=== PATIENT | male | born 1970 | race Asian ===

== ENCOUNTER 2016-10-11 19:15 | Observation (INO) | payer OTHER ==
--- NOTE | 2016-10-11 19:40 | PDOC ---
[id number] Illness Initial Comments: 10/11/16 21:49 The patient is a 46 year old male, with no significant past medical history, who presents to the emergency department with his , after a possible CVA/ TIA. As per the patient's she reports that her took a long shower this evening and when he got out he was very drowsy and she noticed that his left eye was droopy. She then asked him to smile and reported that he had left sided facial weakness. The left sided facial weakness had resolved prior to presentation to the emergency department. The patient reports that he did not fall in the shower. He denies any shortness of breath, dizziness, and balance problems. He denies fever, chills, nausea, vomit, diarrhea and constipation. Allergies: None Social history: No alcohol or drug use <Ngoc Uriostegui - Last Filed: 10/11/16 21:52> <Eneida Ferro - Last Filed: 10/13/16 22:53> - General Chief Complaint: CVA/TIA Stated Complaint: WEAKNESS AND DISORIENTATION PER Time Seen by Provider: 10/11/16 19:37 Past History <Ngoc Uriostegui - Last Filed: 10/11/16 21:52> - Past Medical History Other medical history: DENIES - Psycho/Social/Smoking Cessation Hx Anxiety: No Suicidal Ideation: No Smoking History: Never smoked Have you smoked in the past 12 months: No Information on smoking cessation initiated: No Hx Alcohol Use: No Drug/Substance Use Hx: No Substance Use Type: None <Eneida Ferro - Last Filed: 10/13/16 22:53> - Past Medical History Allergies/Adverse Reactions: Allergies Allergy/AdvReac Type Severity Reaction Status Date / Time No Known Allergies Allergy Verified 10/11/16 20:28 Home Medications: Ambulatory Orders Aspirin Coated [Ecotrin -] 81 mg PO DAILY #30 mg 10/13/16 Atorvastatin Ca [Lipitor] 80 mg PO HS #30 tablet 10/13/16 Review of Systems - Review of Systems Able to Perform ROS?: Yes Comments:: 10/11/16 21:49 CONSTITUTIONAL: +drowsey Absent: fever, chills, diaphoresis, generalized weakness, malaise, loss of appetite HEENT: Absent: rhinorrhea, nasal congestion, throat pain, throat swelling, difficulty swallowing, mouth swelling, ear pain, eye pain, visual Changes CARDIOVASCULAR: Absent: chest pain, syncope, palpitations, irregular heart rate, lightheadedness , peripheral edema RESPIRATORY: Absent: cough, shortness of breath, dyspnea with exertion, orthopnea, wheezing, stridor, hemoptysis GASTROINTESTINAL: Absent: abdominal pain, abdominal distension, nausea, vomiting, diarrhea, constipation, melena, hematochezia GENITOURINARY: Absent: dysuria, frequency, urgency, hesitancy, hematuria, flank pain, genital pain MUSCULOSKELETAL: Absent: myalgia, arthralgia, joint swelling SKIN: Absent: rash, itching, pallor HEMATOLOGIC/IMMUNOLOGIC: Absent: easy bleeding, easy bruising, lymphadenopathy, frequent infections ENDOCRINE: Absent: unexplained weight gain, unexplained weight loss, heat intolerance, cold intolerance NEUROLOGIC: Absent: headache, focal weakness or paresthesias, dizziness, unsteady gait, seizure, mental status changes, bladder or bowel incontinence PSYCHIATRIC: Absent: anxiety, depression, suicidal or homicidal ideation, hallucinations. <Ngoc Uriostegui - Last Filed: 10/11/16 21:52> *Physical Exam - Vital Signs Last Vital Signs Temp Pulse Resp BP Pulse Ox 98.1 F 73 14 130/90 100 10/11/16 19:22 10/11/16 20:30 10/11/16 20:30 10/11/16 20:30 10/11/16 20:30 - Physical Exam Comments: 10/11/16 21:49 GENERAL: The patient is awake, appearing drowsy but responsive to person and place with halting speech. In no acute distress. HEAD: Normal with no signs of trauma. EYES: Pupils equal, round and reactive to light, extraocular movements intact, sclera anicteric, conjunctiva clear with no pallor. ENT: +Dry mucous membranes. Ears normal, nares patent, oropharynx clear without exudates. NECK: Normal range of motion, supple without lymphadenopathy, JVD, or masses. LUNGS: Breath sounds equal, clear to auscultation bilaterally. No wheeze/ crackles. HEART: Regular rate and rhythm, normal S1 and S2 without murmur or rub. ABDOMEN: =Generalized mild abdominal tenderness Soft, nondistended. BS wnl. No guarding or rebound. No palpable masses. No hepatosplenomegaly. EXTREMITIES: Normal range of motion, no edema. No clubbing or cyanosis. No cords, erythema, or tenderness. NEUROLOGICAL: Cranial nerves II through XII grossly intact. Did not test gait. PSYCH: Normal mood, normal affect. SKIN: Warm, Dry, normal turgor, no rashes or lesions noted. <MoodyNgoc - Last Filed: 10/11/16 21:52> - Vital Signs Last Vital Signs Temp Pulse Resp BP Pulse Ox 98.1 F 87 16 132/89 100 10/11/16 19:22 10/11/16 19:22 10/11/16 19:22 10/11/16 19:22 10/11/16 19:22 <Eneida Ferro - Last Filed: 10/13/16 22:53> NIH Stroke Scale - Initial Evaluation Level of consciousness: Alert Ask patient the month and their age: Answers both correctly Ask patient to open & close eyes; make fist and let go: Obeys both correctly Best gaze (horizontal eye movement): Normal Visual field testing: No visual field loss Facial paresis (Show teeth/raise eyebrows/close eyes tight): Normal symmetrical movement Motor Function: Right Arm: Normal (extends arm 90 (or 45) degrees for 10 seconds without drift Motor Function: Left Leg: Normal (extends leg 30 degrees for 5 seconds without drift) Motor Function: Right Leg: Normal (extends leg 30 degrees for 5 seconds without drift) Limb Ataxia: Untestable (Joint fused or limb amputated), explain: Sensory(Use pinprick test arms,legs,trunk,face/side to side): Normal Best language (Describe picture, name items, read sentences): Mild to moderate aphasia Dysarthria (read several words): Intubated or other physical barrierr, explain: <Eneida Ferro - Last Filed: 10/13/16 22:53> Critical Care Time/MDM Note - Medical Decision Making Note: 10/11/16 21:12 CT Head Without Contrast Reported by: Dr. Sandra Saldaña Reviewed by: Dr. Eneida Ferro Impression: There is no evidence of an acute intracranial process, intracranial hemorrhage or mass effect. Ventricular size if concordant with the degree of atrophy. The visualized portions of the orbits, paranasal and mastoid sinuses are unremarkable. If there is a clinical suspicion of an acute intracranial process and if there is no clinical contraindication, MRI brain may be helpful. <Ngoc Uriostegui - Last Filed: 10/11/16 21:52> - Medical Decision Making Note: Documentation has been prepared under my direction and personally reviewed by me in its entirety. I attest that this documented accurately reflects all work, treatment, procedures and medical decision making performed by me. As noted above, this 46-year-old man, otherwise healthy was ambulatory to the emergency room accompanied by his with a history of altered mental status. 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 Patient took a shower as noted above and then , as described by his , appeared pale and with decreased responsiveness when he exited the shower. Patient stated that he "felt sick". describes left-sided facial droop at this time which lasted until he presented to the emergency room. There was no other weakness noted. Although patient has had decreased responsiveness since this time, there is been no dysarthria noted. No recent head trauma reported by patient or his . No history of smoking, alcohol or drug abuse. No other past medical history. states that the patient has had generalized abdominal pain for a few months without vomiting or change in bowel movements. He has had no fever or chills. He also has complained of bilateral lower extremity pain for the last several days without known overuse or trauma. Exam as noted above Workup including laboratory evaluation, noncontrast head CT, abdominal CT/ pelvic CT, EKG reveals no evidence of acute process. Urine tox screen is negative case was discussed with of [facility]. Patient will be admitted to their service with diagnosis of TIA. Patient was transferred up to admission bed, stable and alert without new problems or complaints <Eneida Ferro - Last Filed: 10/13/16 22:53> Discharge Disposition <Ngoc Uriostegui - Last Filed: 10/11/16 21:52> - Discharge Dispostion Admit: Yes <Eneida Ferro - Last Filed: 10/13/16 22:53> - Diagnosis TIA (transient ischemic attack) Qualifiers: Transient cerebral ischemia type: unspecified Qualified Code(s): G45.9 - Transient cerebral ischemic attack, unspecified - Discharge Dispostion Disposition: HOME Condition at time of disposition: Improved - Prescriptions - Referrals
[2016-10-11 20:19] LABS: BASOPHIL 0.6 % (0-2.0); EOSINOPHIL 2.6 % (0-4.5); MCH 29.1 pg (25.7-33.7); MCHC 33.8 g/dl (32.0-35.9); MEAN PLT VOLUME 8.4 fl (7.5-11.1); PLATELET COUNT 178 K/MM3 (134-434); RDW 12.5 % (11.9-15.9); WHITE BLOOD COUNT 6.5 K/mm3 (4.0-10.8)
[2016-10-11 20:37] LABS: INR 1.14 (0.82-1.09); PROTHROMBIN TIME (PATIENT) 12.7 SEC (10.2-13.0)
[2016-10-11 20:39] LABS: CPK(DFH) 147 IU/L (38-174)
[2016-10-11 20:40] LABS: ALBUMIN 4.6 g/dl (3.5-5.0); ALK PHOS 52 U/L (32-92); ANION GAP 7 (8-16); BILIRUBIN,TOTAL 0.8 mg/dl (0.2-1.0); CALCIUM 8.9 mg/dl (8.4-10.2); CO2 24 mmol/L (22-28); COCKROFT - GAULT 96.94; CREATININE 1.1 mg/dl (0.6-1.3); GLUCOSE,RANDOM 88 mg/dl (74-106); SGOT/AST 19 U/L (10-42); SGPT/ALT 19 U/L (10-40); TOT PROT 7.1 g/dl (6.4-8.3)
[2016-10-11 20:51] LABS: TROPONIN I (DFP) < 0.03 ng/ml (0.03-0.50)
[2016-10-11] MEDS ORDERED: SODIUM CHLORIDE 1,000 ML IV STA (21:10)
[2016-10-11 21:57] LABS: URINE APPEARANCE Clear; URINE BILIRUBIN Negative (NEGATIVE); URINE BLOOD Negative (NEGATIVE); URINE GLUCOSE (UA) Negative (NEGATIVE); URINE KETONE Negative (NEGATIVE); URINE LEUK ESTERASE Negative (NEGATIVE); URINE NITRITE Negative (NEGATIVE); URINE PROTEIN Negative (NEGATIVE); URINE UROBILINOGEN 0.2 E.U/dl (0.2-1.0)
[2016-10-11 21:58] LABS: URINE COLOR YELLOW
[2016-10-11 22:42] LABS: URINE MARIJUANA THC NEGATIVE ng/ml (CUTOFF=50)
[2016-10-12 01:38] VITALS: BMI 28.3
--- NOTE | 2016-10-12 09:32 | HP ---
CHIEF COMPLAINT: I felt tired. I don't remember anything after that. PCP: None HISTORY OF PRESENT ILLNESS: 46 year-old male with no significant PMH was brought to ED by his for stroke-like symptoms. 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 He went to work as usual yesterday and when he returned home he went to take a shower. When he came out of the shower his noted the left side of his face was drooping. He appeared to be altered mentally. His speech was slow and he was confused. He complained of feeling very tired. He laid his head on her chest and said "I'm sick." The brought the patient to the ED. Over the past month the patient has been suffering from headaches upon waking. He describes the headaches as frontal and bilateral and he has been taking Tylenol for relief. The reports that she too has been waking up with headaches every morning as well as the couple's two daughters. The house they live in is under rennovation by the sensitizer and yesterday someone came in and installed a carbon monoxide detector because the furnace is old, installed in 1959. Recent Travel: none PAST MEDICAL HISTORY: None reported PAST SURGICAL HISTORY: None reported Social History: Smoking: No Alcohol: No Drugs: No Family History: father 75 of diabetes; mother 65 of CVA; brother 55 of CVA; 3 brothers, one with heart problem; 6 sisters a&w Allergies No Known Allergies Allergy (Verified 10/11/16 20:28) HOME MEDICATIONS: Home Medications Medication Instructions Recorded NK [No Known Home Medication] 10/11/16 REVIEW OF SYSTEMS CONSTITUTIONAL: Present: generalized weakness Absent: fever, chills, diaphoresis, malaise, loss of appetite, weight change HEENT: Absent: rhinorrhea, nasal congestion, throat pain, throat swelling, difficulty swallowing, mouth swelling, ear pain, eye pain, visual changes CARDIOVASCULAR: Absent: chest pain, syncope, palpitations, irregular heart rate, lightheadedness , peripheral edema RESPIRATORY: Absent: cough, shortness of breath, dyspnea with exertion, orthopnea, wheezing, stridor, hemoptysis GASTROINTESTINAL: Absent: abdominal pain, abdominal distension, nausea, vomiting, diarrhea, constipation, melena, hematochezia GENITOURINARY: Absent: dysuria, frequency, urgency, hesitancy, hematuria, flank pain, genital pain MUSCULOSKELETAL: Present: bilateral leg pain Absent: myalgia, arthralgia, joint swelling, back pain, neck pain SKIN: Absent: rash, itching, pallor HEMATOLOGIC/IMMUNOLOGIC: Absent: easy bleeding, easy bruising, lymphadenopathy, frequent infections ENDOCRINE: Absent: unexplained weight gain, unexplained weight loss, heat intolerance, cold intolerance NEUROLOGIC: Present: headache, mental status changes, left sided facial droop Absent: paresthesias, dizziness, unsteady gait, seizure, bladder or bowel incontinence PSYCHIATRIC: Absent: anxiety, depression, suicidal or homicidal ideation, hallucinations. PHYSICAL EXAMINATION Vital Signs - 24 hr 10/12/16 10/12/16 02:00 06:00 Temperature 97.6 F Pulse Rate 72 70 Respiratory 14 14 Rate Blood Pressure 109/62 124/75 GENERAL/NEURO: Awake. Alert. Oriented x to person, place, time, President Trump. Speech is delayed. Cannot subtract 7 from 100. Motor/sensory 5/5 in all extremities. Steady gait but unable to follow instructions for heel/toe walking. Has no recollection of events after coming out of shower. HEAD: Normal with no signs of trauma. EYES: Pupils equal, round and reactive to light, extraocular movements intact, sclera anicteric, conjunctiva clear. No ptosis. EARS, NOSE, THROAT: Ears normal, nares patent, oropharynx clear without exudates. Moist mucous membranes. NECK: Normal range of motion, supple without lymphadenopathy, JVD, or masses. LUNGS: Breath sounds equal, clear to auscultation bilaterally. No wheezes, and no crackles. No accessory muscle use. HEART: Regular rate and rhythm, normal S1 and S2 without murmur, rub or gallop. ABDOMEN: Soft, nontender, not distended, normoactive bowel sounds, no guarding, no rebound, no masses. No hepatomegaly or splenomegaly. MUSCULOSKELETAL: Normal range of motion at all joints. No bony deformities or tenderness. No CVA tenderness. UPPER EXTREMITIES: 2+ pulses, warm, well-perfused. No cyanosis. No clubbing. No peripheral edema. LOWER EXTREMITIES: 2+ pulses, warm, well-perfused. No calf tenderness. No peripheral edema. Laboratory Results - last 24 hr 10/11/16 10/11/16 10/11/16 19:30 19:30 19:30 WBC 6.5 RBC 5.23 Hgb 15.2 Hct 44.9 MCV 86.0 MCHC 33.8 RDW 12.5 Plt Count 178 MPV 8.4 Neutrophils % 55.0 Lymphocytes % 33.5 Monocytes % 8.3 Eosinophils % 2.6 Basophils % 0.6 INR PTT (Actin FS) Sodium 138 Potassium 3.8 Chloride 107 Carbon Dioxide 24 Anion Gap 7 L BUN 19 H Creatinine 1.1 Creat Clearance w eGFR > 60 Random Glucose 88 Lactic Acid Calcium 8.9 Total Bilirubin 0.8 AST 19 ALT 19 Alkaline Phosphatase 52 Creatine Kinase 147 Troponin I < 0.03 L Total Protein 7.1 Albumin 4.6 Triglycerides Cholesterol Total LDL Cholesterol HDL Cholesterol Urine Color Urine Appearance Urine pH Ur Specific Knox Urine Protein Urine Glucose (UA) Urine Ketones Urine Blood Urine Nitrite Urine Bilirubin Urine Urobilinogen Ur Leukocyte Esterase Opiates Screen Methadone Screen Barbiturate Screen Phencyclidine Screen Ur Amphetamines Screen MDMA (Ecstasy) Screen Benzodiazepines Screen Cocaine Screen U Marijuana (THC) Screen 10/11/16 10/11/16 10/11/16 19:30 20:15 21:40 WBC RBC Hgb Hct MCV MCHC RDW Plt Count MPV Neutrophils % Lymphocytes % Monocytes % Eosinophils % Basophils % INR 1.14 PTT (Actin FS) Sodium Potassium Chloride Carbon Dioxide Anion Gap BUN Creatinine Creat Clearance w eGFR Random Glucose Lactic Acid 0.802 Calcium Total Bilirubin AST ALT Alkaline Phosphatase Creatine Kinase Troponin I Total Protein Albumin Triglycerides Cholesterol Total LDL Cholesterol HDL Cholesterol Urine Color Yellow Urine Appearance Clear Urine pH 6.0 Ur Specific Knox 1.010 Urine Protein Negative Urine Glucose (UA) Negative Urine Ketones Negative Urine Blood Negative Urine Nitrite Negative Urine Bilirubin Negative Urine Urobilinogen 0.2 e.u/dl Ur Leukocyte Esterase Negative Opiates Screen Methadone Screen Barbiturate Screen Phencyclidine Screen Ur Amphetamines Screen MDMA (Ecstasy) Screen Benzodiazepines Screen Cocaine Screen U Marijuana (THC) Screen 10/11/16 10/12/16 10/12/16 21:40 06:15 06:30 WBC 4.9 RBC 4.99 Hgb 14.6 Hct 43.0 MCV 86.1 MCHC 33.9 RDW 12.6 Plt Count 142 D MPV 9.1 Neutrophils % 54.6 Lymphocytes % 31.3 Monocytes % 9.6 Eosinophils % 3.3 Basophils % 1.2 INR PTT (Actin FS) Sodium Potassium Chloride Carbon Dioxide Anion Gap BUN Creatinine Creat Clearance w eGFR Random Glucose Lactic Acid Calcium Total Bilirubin AST ALT Alkaline Phosphatase Creatine Kinase Troponin I Total Protein Albumin Triglycerides 138 Cholesterol 163 Total LDL Cholesterol 105 HDL Cholesterol 30 Urine Color Urine Appearance Urine pH Ur Specific [place] Urine Protein Urine Glucose (UA) Urine Ketones Urine Blood Urine Nitrite Urine Bilirubin Urine Urobilinogen Ur Leukocyte Esterase Opiates Screen Negative Methadone Screen Negative Barbiturate Screen Negative Phencyclidine Screen Negative Ur Amphetamines Screen Negative MDMA (Ecstasy) Screen Negative Benzodiazepines Screen Negative Cocaine Screen Negative U Marijuana (THC) Screen Negative 10/12/16 10/12/16 06:30 06:30 WBC RBC Hgb Hct MCV MCHC RDW Plt Count MPV Neutrophils % Lymphocytes % Monocytes % Eosinophils % Basophils % INR 1.16 PTT (Actin FS) 31.2 Sodium 141 Potassium 3.9 Chloride 109 H Carbon Dioxide 26 Anion Gap 6 L BUN 15 D Creatinine 0.9 Creat Clearance w eGFR > 60 Random Glucose 92 Lactic Acid Calcium 8.7 Total Bilirubin 1.2 H D AST 16 ALT 16 Alkaline Phosphatase 43 Creatine Kinase Troponin I Total Protein 6.1 L Albumin 3.9 Triglycerides Cholesterol Total LDL Cholesterol HDL Cholesterol Urine Color Urine Appearance Urine pH Ur Specific Knox Urine Protein Urine Glucose (UA) Urine Ketones Urine Blood Urine Nitrite Urine Bilirubin Urine Urobilinogen Ur Leukocyte Esterase Opiates Screen Methadone Screen Barbiturate Screen Phencyclidine Screen Ur Amphetamines Screen MDMA (Ecstasy) Screen Benzodiazepines Screen Cocaine Screen U Marijuana (THC) Screen ASSESSMENT/PLAN: 46 year-old man with no significant PMH admitted with altered mental status. Altered mental status of uncertain etiology --possible carbon monoxide exposure v. TIA/CVA v. metabolic encephalopathy v. infectious --patient placed on NRB @ 15L --initial CT head negative, repeat pending; MRI pending --ABG with carboxyhemoglobin, lactic acid, esr, crp, Lymes, acetaminophen/ salicyclate levels, serum osm, urine osm, cultures ordered --will transfer patient to ICU and daughters are en route to [facility] ED for evaluation (ABGs cannot be done at [facility]). Tried to reach [facility] but no answer. Spoke to Sgt. Davila of [place] [facility] and notifed him of possible carbon monoxide condition at [address] [place] [address]. Visit type - Emergency Visit Emergency Visit: Yes ED Registration Date: 10/12/16 Care time: The patient presented to the Emergency Department on the above date and was hospitalized for further evaluation of their emergent condition. - New Patient This patient is new to me today: Yes Date on this admission: 10/16/16 - Critical Care Critical Care patient: No
[2016-10-12 09:38] LABS: CHOLESTEROL 163 mg/dl
[2016-10-12 09:41] LABS: ACTIVATED PTT 31.2 SECONDS (24.0-38.9)
[2016-10-12 09:42] LABS: ALBUMIN 3.9 g/dl (3.5-5.0); ALK PHOS 43 U/L (32-92); ANION GAP 6 (8-16); BILIRUBIN,TOTAL 1.2 mg/dl (0.2-1.0); CALCIUM 8.7 mg/dl (8.4-10.2); CO2 26 mmol/L (22-28); CREATININE 0.9 mg/dl (0.6-1.3); GLUCOSE,RANDOM 92 mg/dl (74-106); SGOT/AST 16 U/L (10-42); SGPT/ALT 16 U/L (10-40); TOT PROT 6.1 g/dl (6.4-8.3)
[2016-10-12 09:43] LABS: BASOPHIL 1.2 % (0-2.0); EOSINOPHIL 3.3 % (0-4.5); MCH 29.2 pg (25.7-33.7); MCHC 33.9 g/dl (32.0-35.9); MEAN CELL VOLUME 86.1 fl (80-96); MEAN PLT VOLUME 9.1 fl (7.5-11.1); NEUTROPHILS 54.6 % (42.8-82.8); PLATELET COUNT 142 K/MM3 (134-434); RDW 12.6 % (11.9-15.9); WHITE BLOOD COUNT 4.9 K/mm3 (4.0-10.8)
[2016-10-12 09:46] LABS: INR 1.16 (0.82-1.09); PROTHROMBIN TIME (PATIENT) 12.9 SEC (10.2-13.0)
[2016-10-12] MEDS ORDERED: ASPIRIN COATED 81 MG TABLET.EC PO SCH (10:00)
[2016-10-12 11:34] LABS: THYROID STIMULATING HORMONE 1.08 uIU/ml (0.358-3.74)
[2016-10-12 14:35] LABS: ARTERIAL BLOOD GAS BASE EXCESS 1.8 meq/l (-2-2); ARTERIAL BLOOD GAS HCO3 25.5 meq/L (22-26); ARTERIAL BLOOD GAS pH 7.44 (7.35-7.45)
[2016-10-12 14:36] LABS: ALLENS TEST POSITIVE; ART PUNCT SITE RIGHT RADIAL; LPM/O2% 100%; PT. ON O2? YES; TYPE OF O2 NONREBREATHER
[2016-10-12 15:37] LABS: OSMOLALITY,SERUM 290 mosm/kg (278-305)
--- NOTE | 2016-10-12 15:44 | CONSULT ---
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 Patient report ROBBINS upon wakening over the last month t/w APAP. In the ED he had CT head w/o acute infarct, MRI with minimal to mild periventricular intensity to the trigone and occipital horn of RV ? toxic encephalopathy vs encephalitis. On exam in ED speech was delayed and cognitive impairment (unable to do simple math). The rest of the family also has ? ROBBINS and given that their home/furnace is undergoing construction and questionable CO toxicity he was transferred to [facility] for ABG and carboxyhemoglobin evaluation. On arrival to [facility] patient awake, alert w/o neurological focal deficit. ABG done no A-a gradient, carboxyhemoglobin level: 1. Lactate 1.128. UTOX negative. APAP negative, ASA levels pending. ESR: 5. No osmolar gap. He denies fever, chills, nausea, vomit, diarrhea and constipation, no photophobia or nuchal rigidity. On exam he is AOx3 , HOLMAN w/o deficit. No CN defects. His mini mental he is able to subtract 100-7 but is delayed in his response. Of note the fire department was activated to the patient's home and no CO was detected. - History Source History Provided By: Patient, Family Member, Medical Record Limitations to Obtaining History: No Limitations - Past Medical History CORRECTIONAL THERAPY DIRECTOR: No: Alzheimer's, CVA, Dementia, Migraine, Multiple Sclerosis, Peripheral Neuropathy, Parkinson's, Seizure, Syncope, TIA, Vertigo, Other Cardio/Vascular: No: AFIB, Aneurysm, Aortic Insufficiency, Aortic Stenosis, CAD , CHF, Deep Vein Thrombosis, HTN, Hyperlipdemia, VA, Mitral Insufficiency, Mitral Stenosis, Murmur, Pulmonary Hypertension, Other Pulmonary: No: Asthma, Bronchitis, Cancer, COPD, O2 Dependent, Pneumonia, Previously Intubated, Pulmonary Embolus, Pulmonary Fibrosis, Sleep Apnea, Other - Alcohol/Substance Use Hx Alcohol Use: No - Smoking History Smoking history: Never smoked Have you smoked in the past 12 months: No Home Medications - Allergies Allergies/Adverse Reactions: Allergies Allergy/AdvReac Type Severity Reaction Status Date / Time No Known Allergies Allergy Verified 10/11/16 20:28 - Home Medications Home Medications: Ambulatory Orders NK [No Known Home Medication] 10/11/16 Family Disease History - Family Disease History Family Disease History: Other: Mother ( of CVA), Brother ( of CVA), Sister ( of CVA) Review of Systems - Review of Systems Neurological: reports: Change in Speech, Confusion, Weakness Physical Exam Vital Signs: Vital Signs Temperature 98.6 F 10/12/16 13:51 Pulse Rate 68 10/12/16 13:51 Respiratory Rate 12 10/12/16 13:51 Blood Pressure 124/81 10/12/16 13:51 O2 Sat by Pulse Oximetry (%) 100 10/12/16 14:20 Current Medications Aspirin (Ecotrin -) 81 mg PO DAILY ZACH Last Admin: 10/12/16 10:21 Dose: 81 mg Atorvastatin Calcium (Lipitor -) 40 mg PO HS ZACH Constitutional: Yes: No Distress, Calm Eyes: Yes: Conjunctiva Clear, EOM Intact HENT: Yes: Normocephalic Neck: Yes: Trachea Midline Cardiovascular: Yes: Regular Rate and Rhythm, S1, S2 Respiratory: Yes: CTA Bilaterally Gastrointestinal: Yes: Normal Bowel Sounds, Soft Edema: No Neurological: Yes: Alert, Oriented Psychiatric: Yes: Oriented Labs: CBC, BMP 10/12/16 06:30 10/12/16 06:30 Imaging - Results Cat Scan: Report Reviewed, Image Reviewed MRI: Report Reviewed, Image Reviewed Problem List - Problems (1) TIA (transient ischemic attack) Code(s): G45.9 - TRANSIENT CEREBRAL ISCHEMIC ATTACK, UNSPECIFIED Qualifiers: Transient cerebral ischemia type: unspecified Qualified Code(s): G45.9 - Transient cerebral ischemic attack, unspecified Assessment/Plan a/p 46 yo man with new onset left facial droop w/o acute infarct seen on imaging giving rise for CO poisoning now w/o evidence of carboxyhemoglobin which maybe do to washout (patient on NRB) vs most likely TIA vs less likely toxic overdose. He does not appear infected: no fever or leukocytosis -Neurology following -will place back on RA -cont w/u per neuro -cont tox w/u: -stable for floor transfer Boerem ACNP Pulm/CCM CCT: 35
--- NOTE | 2016-10-12 16:29 | PN ---
Physical Exam: SUBJECTIVE: Patient seen and examined in the ICU. He denies dizziness, headaches, lightheadedness, shortness of breath or chest pain. OBJECTIVE: carboxyhemoglobin 1.0 Vital Signs Period Temp Pulse Resp BP Sys/Ramos Pulse Ox Last 24 Hr 97.6 F-98.6 F 68-72 12-16 109-124/62-81 100 GENERAL: The patient is awake, alert, oriented. Slight delay in responding to questions noted, but answers appropriately. States he vaguely remembers events after coming of the shower but states that he had a headache and felt lightheaded during that time. HEAD: Normal with no signs of trauma. EYES: PERRL, extraocular movements intact, sclera anicteric, conjunctiva clear. No ptosis. ENT: Ears normal, nares patent, oropharynx clear without exudates, moist mucous membranes. NECK: Trachea midline, full range of motion, supple. LUNGS: Breath sounds equal, clear to auscultation bilaterally, no wheezes, no crackles, no accessory muscle use. HEART: Regular rate and rhythm ABDOMEN: Soft, nontender, nondistended, normoactive bowel sounds, no guarding, no rebound, no hepatosplenomegaly, no masses. EXTREMITIES: no edema. NEUROLOGICAL: Normal speech, gait not observed. PSYCH: Normal mood, normal affect. SKIN: Warm, dry, normal turgor, no rashes or lesions noted Laboratory Results - last 24 hr 10/12/16 10/12/16 10/12/16 06:15 06:30 06:30 WBC 4.9 RBC 4.99 Hgb 14.6 Hct 43.0 MCV 86.1 MCHC 33.9 RDW 12.6 Plt Count 142 D MPV 9.1 Neutrophils % 54.6 Lymphocytes % 31.3 Monocytes % 9.6 Eosinophils % 3.3 Basophils % 1.2 ESR INR 1.16 PTT (Actin FS) 31.2 Anticoagulation Therapy Puncture Site Patient Temperature ABG pH ABG pCO2 at Pt Temp ABG pO2 at Pt Temp ABG HCO3 ABG O2 Sat (Measured) ABG O2 Content ABG Base Excess Stan Test Carboxyhemoglobin O2 Delivery Device Oxygen Flow Rate Vent Mode Vent Rate Mechanical Rate PEEP Pressure Support Vent Sodium Potassium Chloride Carbon Dioxide Anion Gap BUN Creatinine Creat Clearance w eGFR Random Glucose Hemoglobin A1c % Serum Osmolality Lactic Acid Calcium Total Bilirubin AST ALT Alkaline Phosphatase Creatine Kinase Troponin I C-Reactive Protein Total Protein Albumin Triglycerides 138 Cholesterol 163 Total LDL Cholesterol 105 HDL Cholesterol 30 Vitamin B12 TSH Urine Osmolality Salicylates Acetaminophen 10/12/16 10/12/16 10/12/16 06:30 06:30 06:30 WBC RBC Hgb Hct MCV MCHC RDW Plt Count MPV Neutrophils % Lymphocytes % Monocytes % Eosinophils % Basophils % ESR 5 INR PTT (Actin FS) Anticoagulation Therapy Puncture Site Patient Temperature ABG pH ABG pCO2 at Pt Temp ABG pO2 at Pt Temp ABG HCO3 ABG O2 Sat (Measured) ABG O2 Content ABG Base Excess Stan Test Carboxyhemoglobin O2 Delivery Device Oxygen Flow Rate Vent Mode Vent Rate Mechanical Rate PEEP Pressure Support Vent Sodium 141 Potassium 3.9 Chloride 109 H Carbon Dioxide 26 Anion Gap 6 L BUN 15 D Creatinine 0.9 Creat Clearance w eGFR > 60 Random Glucose 92 Hemoglobin A1c % 5.7 Serum Osmolality Lactic Acid Calcium 8.7 Total Bilirubin 1.2 H D AST 16 ALT 16 Alkaline Phosphatase 43 Creatine Kinase Troponin I C-Reactive Protein Total Protein 6.1 L Albumin 3.9 Triglycerides Cholesterol Total LDL Cholesterol HDL Cholesterol Vitamin B12 TSH 1.08 Urine Osmolality Salicylates Acetaminophen 10/12/16 10/12/16 10/12/16 13:00 13:00 13:00 WBC RBC Hgb Hct MCV MCHC RDW Plt Count MPV Neutrophils % Lymphocytes % Monocytes % Eosinophils % Basophils % ESR INR PTT (Actin FS) Anticoagulation Therapy Puncture Site Patient Temperature ABG pH ABG pCO2 at Pt Temp ABG pO2 at Pt Temp ABG HCO3 ABG O2 Sat (Measured) ABG O2 Content ABG Base Excess Stan Test Carboxyhemoglobin O2 Delivery Device Oxygen Flow Rate Vent Mode Vent Rate Mechanical Rate PEEP Pressure Support Vent Sodium Potassium Chloride Carbon Dioxide Anion Gap BUN Creatinine Creat Clearance w eGFR Random Glucose Hemoglobin A1c % Serum Osmolality Lactic Acid Calcium Total Bilirubin AST ALT Alkaline Phosphatase Creatine Kinase Cancelled Troponin I C-Reactive Protein < 0.3 Total Protein Albumin Triglycerides Cholesterol Total LDL Cholesterol HDL Cholesterol Vitamin B12 235 TSH Urine Osmolality Salicylates Acetaminophen 10/12/16 10/12/16 10/12/16 13:00 13:00 13:00 WBC RBC Hgb Hct MCV MCHC RDW Plt Count MPV Neutrophils % Lymphocytes % Monocytes % Eosinophils % Basophils % ESR INR PTT (Actin FS) Anticoagulation Therapy Puncture Site Patient Temperature ABG pH ABG pCO2 at Pt Temp ABG pO2 at Pt Temp ABG HCO3 ABG O2 Sat (Measured) ABG O2 Content ABG Base Excess Stan Test Carboxyhemoglobin O2 Delivery Device Oxygen Flow Rate Vent Mode Vent Rate Mechanical Rate PEEP Pressure Support Vent Sodium Potassium Chloride Carbon Dioxide Anion Gap BUN Creatinine Creat Clearance w eGFR Random Glucose Hemoglobin A1c % Serum Osmolality Lactic Acid 1.128 Calcium Total Bilirubin AST ALT Alkaline Phosphatase Creatine Kinase Troponin I C-Reactive Protein Total Protein Albumin Triglycerides Cholesterol Total LDL Cholesterol HDL Cholesterol Vitamin B12 TSH Urine Osmolality Salicylates < 4.0 Acetaminophen < 2.000 L 10/12/16 10/12/16 10/12/16 13:00 13:15 13:15 WBC RBC Hgb Hct MCV MCHC RDW Plt Count MPV Neutrophils % Lymphocytes % Monocytes % Eosinophils % Basophils % ESR INR PTT (Actin FS) Anticoagulation Therapy Puncture Site Patient Temperature ABG pH ABG pCO2 at Pt Temp ABG pO2 at Pt Temp ABG HCO3 ABG O2 Sat (Measured) ABG O2 Content ABG Base Excess Stan Test Carboxyhemoglobin O2 Delivery Device Oxygen Flow Rate Vent Mode Vent Rate Mechanical Rate PEEP Pressure Support Vent Sodium Potassium Chloride Carbon Dioxide Anion Gap BUN Creatinine Creat Clearance w eGFR Random Glucose Hemoglobin A1c % Serum Osmolality 290 Lactic Acid Calcium Total Bilirubin AST ALT Alkaline Phosphatase Creatine Kinase 101 Troponin I 0.00 C-Reactive Protein Total Protein Albumin Triglycerides Cholesterol Total LDL Cholesterol HDL Cholesterol Vitamin B12 TSH Urine Osmolality 795 Salicylates Acetaminophen 10/12/16 10/12/16 10/12/16 14:20 14:20 14:20 WBC RBC Hgb Hct MCV MCHC RDW Plt Count MPV Neutrophils % Lymphocytes % Monocytes % Eosinophils % Basophils % ESR INR PTT (Actin FS) Anticoagulation Therapy Cancelled Puncture Site Cancelled Right radial Patient Temperature Cancelled ABG pH Cancelled 7.44 ABG pCO2 at Pt Temp Cancelled 38.3 ABG pO2 at Pt Temp Cancelled 541.0 H* ABG HCO3 Cancelled 25.5 ABG O2 Sat (Measured) Cancelled 100.0 H* ABG O2 Content Cancelled 22.0 ABG Base Excess Cancelled 1.8 Stan Test Cancelled Positive Carboxyhemoglobin 1.0 O2 Delivery Device Cancelled Nonrebreather Oxygen Flow Rate Cancelled 100% Vent Mode Cancelled Vent Rate Cancelled Mechanical Rate Cancelled PEEP Cancelled 0.0 Pressure Support Vent Cancelled Sodium Potassium Chloride Carbon Dioxide Anion Gap BUN Creatinine Creat Clearance w eGFR Random Glucose Hemoglobin A1c % Serum Osmolality Lactic Acid Calcium Total Bilirubin AST ALT Alkaline Phosphatase Creatine Kinase Troponin I C-Reactive Protein Total Protein Albumin Triglycerides Cholesterol Total LDL Cholesterol HDL Cholesterol Vitamin B12 TSH Urine Osmolality Salicylates Acetaminophen Active Medications Generic Name Dose Route Start Last Admin Trade Name Evi PRN Reason Stop Dose Admin Aspirin 81 mg 10/13/16 10:00 Ecotrin - PO DAILY ZACH Atorvastatin Calcium 40 mg 10/12/16 22:00 Lipitor - PO HS ZACH ASSESSMENT/PLAN: Patient is a 46 year old male with no significant past medical history who presents to the emergency department @ [place] with his after there was a concern over a possible CVA/TIA. As per ER notes the patient took a long shower yesterday in the evening and when he got out of the shower he was very drowsy. After shower, patient's noted that his left eye was droopy and she noted left sided facial weakness. The patient denies that he fell in the shower. There was also a concern over possible carbon dioxide poisoning as patient is currently having renovations done in his home. On exam, Patient denies any shortness of breath, chest pain, dizziness or lightheadedness. Patient was transferred to [facility] ICU for closer monitoring. Imaging: Brain MRI 10/12/2016: non specific min to mild increased periventricular signal intensity adjacent to the trigone and occipital horn of the rt lateral ventricle with questionable metabolic encephlopathy Neuro: Altered mental status - uncertain etiology Assessment/Plan: Concern for carbon monoxide poisoning but carboxyhemoglobin is 1.0 Cannot rule out CVA/TIA vs. infectious process No facial droop noted on exam, but patient was slow to respond: responses were accurate He is alert and oriented, can now recall events of the shower Was placed on a NRB en route to [facility], but now tolerating room air Supplemental oxygen as needed CT of head neg., brain mri concern for questionable metabolic encephlopathy Blood cultures and urine cultures pending Patient is afebrile, WBC within normal limits chemistry panel within normal limits Lactic acid 1.1 ESR, CRP Lymes pending acetaminophen/salicyclate levels low serum osmol,pending/urine osmol 795 Tox screen negative Troponins 0.03>0.00 F.E.N. Fluids: PO intake adequate Electrolytes:within normal limits - follow BMP Nutrition: regular diet Prophylaxis: DVT: Lovenox 40mg GI: Protonix Visit type - Emergency Visit Emergency Visit: Yes ED Registration Date: 10/12/16 Care time: The patient presented to the Emergency Department on the above date and was hospitalized for further evaluation of their emergent condition. - New Patient This patient is new to me today: Yes Date on this admission: 10/12/16 - Critical Care Critical Care patient: Yes Total Critical Care Time (in minutes): 45 Critical Care Statement: The care of this patient involved high complexity decision making to prevent further life threatening deterioration of the patient 's condition and/or to evalute & treat vital organ system(s) failure or risk of failure. - Discharge Referral Referred to [facility] Med [facility].: No
--- NOTE | 2016-10-12 17:50 | CON.NEURO ---
Consult Consult Specialty:: Neurology - History of Present Illness History of Present Illness: 46 year-old male with no significant PMH was brought to ED by his for change in Mental status since yesterday apx 5 PM. 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 ? left side of his face was drooping noted by . Over the past month the patient has been suffering from headaches upon waking. He describes the headaches as frontal and bilateral and he has been taking Tylenol for relief. The house they live in is under rennovation , ? CO exposure. feels back to baseline, aware of events form today and yesterday. no focal motor /sensory Sx. denies toxic habits. no rash. no fever. CT HD (-). MRI BRAIN --reviewed very subtle changes posterior right lateral ventricular area (if at all) no radiological signs of CO poisoning ; no infract , mass, or clears signs of cereberitis or encephalitis. - History Source History Provided By: Patient, Medical Record - Past Medical History B[employer]PA[employer]: No: Alzheimer's, CVA, Dementia, Migraine, Multiple Sclerosis, Peripheral Neuropathy, Parkinson's, Seizure, Syncope, TIA, Vertigo, Other Cardio/Vascular: No: AFIB, Aneurysm, Aortic Insufficiency, Aortic Stenosis, CAD , CHF, Deep Vein Thrombosis, HTN, Hyperlipdemia, MO, Mitral Insufficiency, Mitral Stenosis, Murmur, Pulmonary Hypertension, Other Pulmonary: No: Asthma, Bronchitis, Cancer, COPD, O2 Dependent, Pneumonia, Previously Intubated, Pulmonary Embolus, Pulmonary Fibrosis, Sleep Apnea, Other - Alcohol/Substance Use Hx Alcohol Use: No - Smoking History Smoking history: Never smoked Have you smoked in the past 12 months: No Home Medications - Allergies Allergies/Adverse Reactions: Allergies Allergy/AdvReac Type Severity Reaction Status Date / Time No Known Allergies Allergy Verified 10/11/16 20:28 - Home Medications Home Medications: Ambulatory Orders NK [No Known Home Medication] 10/11/16 Family Disease History - Family Disease History Family Disease History: Other: Mother ( of CVA), Brother ( of CVA), Sister ( of CVA) Physical Exam-Neuro Vital Signs: Vital Signs Temperature 98.6 F 10/12/16 13:51 Pulse Rate 68 10/12/16 17:00 Respiratory Rate 14 10/12/16 17:00 Blood Pressure 132/80 10/12/16 17:00 O2 Sat by Pulse Oximetry (%) 100 10/12/16 14:20 Constitutional: Yes: Well Nourished, Calm Neck: Yes: Supple Cardiovascular: Yes: Regular Rate and Rhythm Respiratory: Yes: CTA Bilaterally Gastrointestinal: Yes: Normal Bowel Sounds Labs: CBC, BMP 10/12/16 06:30 10/12/16 06:30 INR, PTT INR 1.16 (0.82-1.09) 10/12/16 06:30 - Neuro Exam Eyes: Yes: PERRLA Speech: Other (no dysrthria, comprehending and attending , oriented x 3; EOMI, no facial, motor 5/5, reflexes symmetric) NIH Stroke Scale - Last Known Well Date/Time & Onset Symptom Onset Date: 10/11/16 Symptom Onset Time: 17:00 - Initial Evaluation Level of consciousness: Alert Ask patient the month & their age: Answers Both Correctly Ask Patient to open & close eyes; make fist and let go.: Obeys Both Correctly Best gaze (horizontal eye movement): Normal Visual Field Testing: No Visual Loss Facial Palsy(Show teeth or raise eyebrows & close eyes: Normal Symmetrical Movements. Motor Function - Left Arm: No Drift;extends limb 90 (or siting 45) degress & hold full 10 seconds Motor Function - Right Arm: No Drift;extends limb 90 (or siting 45) degress & hold full 10 seconds Motor Function - Left Leg: No Drift; leg holds 30 degree position for full 5 seconds. Motor Function - Right Leg: No Drift; leg holds 30 degree position for full 5 seconds. Limb Ataxia: Absent (also used for the pt who does not understand or paralyzed) Sensory (arms, legs, trunk, face): Normal; no sensory loss Best Language: No Aphasia; normal Dysarthria/Articulation: Normal Extinction and Inattention: No abnormality - Total Score NIH Stroke Scale Score: 0 Imaging - Results MRI: Report Reviewed Problem List - Problems (1) Altered mental status Code(s): R41.82 - ALTERED MENTAL STATUS, UNSPECIFIED Assessment/Plan transient global encephalopathy, though he appears much improved and back to baseline within 24 hours . nonfocal exam MRI BRAIN reviewed very subtle changes , not even sure if they are significant, -- no signs of encephalitis, cerebritis given that he has returned back to baseline doubt seizure or ischemic event (ie TIA) toxic exposure vs PRES still possibility, though no clear culprits. check ESR, RUTH, FU LYME , CRP no need to lumbar tap at this point can get outpt MRI within a week to see if subtle changes have improved / changed. Dr Orozco [phone]
[2016-10-12] MEDS ORDERED: ENOXAPARIN NA (PORCINE) 40 MG/0.4 ML DISP.SYRIN SQ SCH (21:00)
[2016-10-12] MEDS ORDERED: ATORVASTATIN CA 40 MG TABLET (FP) PO SCH ×2 (22:00)
[2016-10-13 06:10] LABS: BASOPHIL 0.4 % (0-2.0); EOSINOPHIL 2.3 % (0-4.5); MCH 29.7 pg (25.7-33.7); MCHC 34.3 g/dl (32.0-35.9); MEAN CELL VOLUME 86.7 fl (80-96); MEAN PLT VOLUME 8.7 fl (7.5-11.1); NEUTROPHILS 55.5 % (42.8-82.8); PLATELET COUNT 139 K/MM3 (134-434); RDW 13.1 % (11.9-15.9); WHITE BLOOD COUNT 5.6 K/mm3 (4.0-10.0)
[2016-10-13 06:50] LABS: ALBUMIN 3.7 g/dl (3.4-5.0); ANION GAP 7 (8-16); CALCIUM 8.3 mg/dL (8.5-10.1); CO2 28 mmol/L (21-32); GLUCOSE,RANDOM 101 mg/dL (74-106)
[2016-10-13 06:53] LABS: ALK PHOS 63 U/L (45-117); BILIRUBIN,TOTAL 0.6 mg/dL (0.2-1.0); COCKROFT - GAULT 108; CREATININE 1.1 mg/dL (0.7-1.3); SGOT/AST 13 U/L (15-37); SGPT/ALT 21 U/L (12-78); TOT PROT 6.4 g/dl (6.4-8.2)
--- NOTE | 2016-10-13 07:37 | PN ---
Physical Exam: SUBJECTIVE: Patient seen and examined no ROBBINS, cp, sob, F/C/N/V, no focal neurological weakness feeling like his normal self. OBJECTIVE: Vital Signs Period Temp Pulse Resp BP Sys/Ramos Pulse Ox Last 24 Hr 97.8 F-98.6 F 64-75 12-20 95-132/65-81 98-100 GENERAL: The patient is awake, alert, and fully oriented, in no acute distress. HEAD: Normal with no signs of trauma. EYES: PERRL, extraocular movements intact, sclera anicteric, conjunctiva clear. No ptosis. ENT: Ears normal, nares patent, oropharynx clear without exudates, moist mucous membranes. NECK: Trachea midline, full range of motion, supple. LUNGS: Breath sounds equal, clear to auscultation bilaterally, no wheezes, no crackles, no accessory muscle use. HEART: Regular rate and rhythm, S1, S2 without murmur, rub or gallop. ABDOMEN: Soft, nontender, nondistended, normoactive bowel sounds, no guarding, no rebound, no hepatosplenomegaly, no masses. EXTREMITIES: 2+ pulses, warm, well-perfused, no edema. NEUROLOGICAL: Normal speech, gait not observed. PSYCH: Normal mood, normal affect. SKIN: Warm, dry, normal turgor, no rashes or lesions noted Laboratory Results - last 24 hr 10/12/16 10/12/16 10/12/16 06:15 06:30 06:30 WBC 4.9 RBC 4.99 Hgb 14.6 Hct 43.0 MCV 86.1 MCHC 33.9 RDW 12.6 Plt Count 142 D MPV 9.1 Neutrophils % 54.6 Lymphocytes % 31.3 Monocytes % 9.6 Eosinophils % 3.3 Basophils % 1.2 ESR INR 1.16 PTT (Actin FS) 31.2 Anticoagulation Therapy Puncture Site Patient Temperature ABG pH ABG pCO2 at Pt Temp ABG pO2 at Pt Temp ABG HCO3 ABG O2 Sat (Measured) ABG O2 Content ABG Base Excess Stan Test Carboxyhemoglobin O2 Delivery Device Oxygen Flow Rate Vent Mode Vent Rate Mechanical Rate PEEP Pressure Support Vent Sodium Potassium Chloride Carbon Dioxide Anion Gap BUN Creatinine Creat Clearance w eGFR Random Glucose Hemoglobin A1c % Serum Osmolality Lactic Acid Calcium Total Bilirubin AST ALT Alkaline Phosphatase Creatine Kinase Troponin I C-Reactive Protein Total Protein Albumin Triglycerides 138 Cholesterol 163 Total LDL Cholesterol 105 HDL Cholesterol 30 Vitamin B12 TSH Urine Osmolality Salicylates Acetaminophen 10/12/16 10/12/16 10/12/16 06:30 06:30 06:30 WBC RBC Hgb Hct MCV MCHC RDW Plt Count MPV Neutrophils % Lymphocytes % Monocytes % Eosinophils % Basophils % ESR 5 INR PTT (Actin FS) Anticoagulation Therapy Puncture Site Patient Temperature ABG pH ABG pCO2 at Pt Temp ABG pO2 at Pt Temp ABG HCO3 ABG O2 Sat (Measured) ABG O2 Content ABG Base Excess Stan Test Carboxyhemoglobin O2 Delivery Device Oxygen Flow Rate Vent Mode Vent Rate Mechanical Rate PEEP Pressure Support Vent Sodium 141 Potassium 3.9 Chloride 109 H Carbon Dioxide 26 Anion Gap 6 L BUN 15 D Creatinine 0.9 Creat Clearance w eGFR > 60 Random Glucose 92 Hemoglobin A1c % 5.7 Serum Osmolality Lactic Acid Calcium 8.7 Total Bilirubin 1.2 H D AST 16 ALT 16 Alkaline Phosphatase 43 Creatine Kinase Troponin I C-Reactive Protein Total Protein 6.1 L Albumin 3.9 Triglycerides Cholesterol Total LDL Cholesterol HDL Cholesterol Vitamin B12 TSH 1.08 Urine Osmolality Salicylates Acetaminophen 10/12/16 10/12/16 10/12/16 13:00 13:00 13:00 WBC RBC Hgb Hct MCV MCHC RDW Plt Count MPV Neutrophils % Lymphocytes % Monocytes % Eosinophils % Basophils % ESR INR PTT (Actin FS) Anticoagulation Therapy Puncture Site Patient Temperature ABG pH ABG pCO2 at Pt Temp ABG pO2 at Pt Temp ABG HCO3 ABG O2 Sat (Measured) ABG O2 Content ABG Base Excess Stan Test Carboxyhemoglobin O2 Delivery Device Oxygen Flow Rate Vent Mode Vent Rate Mechanical Rate PEEP Pressure Support Vent Sodium Potassium Chloride Carbon Dioxide Anion Gap BUN Creatinine Creat Clearance w eGFR Random Glucose Hemoglobin A1c % Serum Osmolality Lactic Acid Calcium Total Bilirubin AST ALT Alkaline Phosphatase Creatine Kinase Cancelled Troponin I C-Reactive Protein < 0.3 Total Protein Albumin Triglycerides Cholesterol Total LDL Cholesterol HDL Cholesterol Vitamin B12 235 TSH Urine Osmolality Salicylates Acetaminophen 10/12/16 10/12/16 10/12/16 13:00 13:00 13:00 WBC RBC Hgb Hct MCV MCHC RDW Plt Count MPV Neutrophils % Lymphocytes % Monocytes % Eosinophils % Basophils % ESR INR PTT (Actin FS) Anticoagulation Therapy Puncture Site Patient Temperature ABG pH ABG pCO2 at Pt Temp ABG pO2 at Pt Temp ABG HCO3 ABG O2 Sat (Measured) ABG O2 Content ABG Base Excess Stan Test Carboxyhemoglobin O2 Delivery Device Oxygen Flow Rate Vent Mode Vent Rate Mechanical Rate PEEP Pressure Support Vent Sodium Potassium Chloride Carbon Dioxide Anion Gap BUN Creatinine Creat Clearance w eGFR Random Glucose Hemoglobin A1c % Serum Osmolality Lactic Acid 1.128 Calcium Total Bilirubin AST ALT Alkaline Phosphatase Creatine Kinase Troponin I C-Reactive Protein Total Protein Albumin Triglycerides Cholesterol Total LDL Cholesterol HDL Cholesterol Vitamin B12 TSH Urine Osmolality Salicylates < 4.0 Acetaminophen < 2.000 L 10/12/16 10/12/16 10/12/16 13:00 13:15 13:15 WBC RBC Hgb Hct MCV MCHC RDW Plt Count MPV Neutrophils % Lymphocytes % Monocytes % Eosinophils % Basophils % ESR INR PTT (Actin FS) Anticoagulation Therapy Puncture Site Patient Temperature ABG pH ABG pCO2 at Pt Temp ABG pO2 at Pt Temp ABG HCO3 ABG O2 Sat (Measured) ABG O2 Content ABG Base Excess Stan Test Carboxyhemoglobin O2 Delivery Device Oxygen Flow Rate Vent Mode Vent Rate Mechanical Rate PEEP Pressure Support Vent Sodium Potassium Chloride Carbon Dioxide Anion Gap BUN Creatinine Creat Clearance w eGFR Random Glucose Hemoglobin A1c % Serum Osmolality 290 Lactic Acid Calcium Total Bilirubin AST ALT Alkaline Phosphatase Creatine Kinase 101 Troponin I 0.00 C-Reactive Protein Total Protein Albumin Triglycerides Cholesterol Total LDL Cholesterol HDL Cholesterol Vitamin B12 TSH Urine Osmolality 795 Salicylates Acetaminophen 10/12/16 10/12/16 10/12/16 14:20 14:20 14:20 WBC RBC Hgb Hct MCV MCHC RDW Plt Count MPV Neutrophils % Lymphocytes % Monocytes % Eosinophils % Basophils % ESR INR PTT (Actin FS) Anticoagulation Therapy Cancelled Puncture Site Cancelled Right radial Patient Temperature Cancelled ABG pH Cancelled 7.44 ABG pCO2 at Pt Temp Cancelled 38.3 ABG pO2 at Pt Temp Cancelled 541.0 H* ABG HCO3 Cancelled 25.5 ABG O2 Sat (Measured) Cancelled 100.0 H* ABG O2 Content Cancelled 22.0 ABG Base Excess Cancelled 1.8 Stan Test Cancelled Positive Carboxyhemoglobin 1.0 O2 Delivery Device Cancelled Nonrebreather Oxygen Flow Rate Cancelled 100% Vent Mode Cancelled Vent Rate Cancelled Mechanical Rate Cancelled PEEP Cancelled 0.0 Pressure Support Vent Cancelled Sodium Potassium Chloride Carbon Dioxide Anion Gap BUN Creatinine Creat Clearance w eGFR Random Glucose Hemoglobin A1c % Serum Osmolality Lactic Acid Calcium Total Bilirubin AST ALT Alkaline Phosphatase Creatine Kinase Troponin I C-Reactive Protein Total Protein Albumin Triglycerides Cholesterol Total LDL Cholesterol HDL Cholesterol Vitamin B12 TSH Urine Osmolality Salicylates Acetaminophen 10/12/16 10/13/16 10/13/16 18:30 05:15 05:15 WBC 5.6 RBC 5.04 Hgb 15.0 Hct 43.7 MCV 86.7 MCHC 34.3 RDW 13.1 Plt Count 139 MPV 8.7 Neutrophils % 55.5 Lymphocytes % 33.6 Monocytes % 8.2 Eosinophils % 2.3 Basophils % 0.4 ESR INR PTT (Actin FS) Anticoagulation Therapy Puncture Site Patient Temperature ABG pH ABG pCO2 at Pt Temp ABG pO2 at Pt Temp ABG HCO3 ABG O2 Sat (Measured) ABG O2 Content ABG Base Excess Stan Test Carboxyhemoglobin O2 Delivery Device Oxygen Flow Rate Vent Mode Vent Rate Mechanical Rate PEEP Pressure Support Vent Sodium 143 Potassium 4.5 Chloride 108 H Carbon Dioxide 28 Anion Gap 7 L BUN 15 Creatinine 1.1 Creat Clearance w eGFR > 60 Random Glucose 101 Hemoglobin A1c % Serum Osmolality Lactic Acid Calcium 8.3 L Total Bilirubin 0.6 AST 13 L ALT 21 Alkaline Phosphatase 63 Creatine Kinase Troponin I C-Reactive Protein < 0.3 Total Protein 6.4 Albumin 3.7 Triglycerides Cholesterol Total LDL Cholesterol HDL Cholesterol Vitamin B12 TSH Urine Osmolality Salicylates Acetaminophen Active Medications Generic Name Dose Route Start Last Admin Trade Name Freq PRN Reason Stop Dose Admin Aspirin 81 mg 10/13/16 10:00 Ecotrin - PO DAILY [facility] Atorvastatin Calcium 40 mg 10/12/16 22:00 10/12/16 21:10 Lipitor - PO 40 mg HS ZACH Administration Enoxaparin Sodium 40 mg 10/12/16 21:00 10/12/16 20:59 Lovenox - SQ 40 mg DAILY@2100 ZACH Administration Pantoprazole Sodium 40 mg 10/13/16 10:00 Protonix - PO DAILY [facility] ASSESSMENT/PLAN: 46 yo man with new onset left facial droop w/o acute infarct seen on imaging giving rise for CO poisoning now w/o evidence of carboxyhemoglobin which maybe do to washout (patient on NRB) vs most likely TIA vs less likely toxic overdose. He does not appear infected: no fever or leukocytosis -Neurology following -will place back on RA -cont w/u per neuro -cont tox w/u: --initial CT head negative, repeat MRI, MRA as outpatient dispo: stable for floor transfer Visit type - Emergency Visit Emergency Visit: Yes ED Registration Date: 10/12/16 Care time: The patient presented to the Emergency Department on the above date and was hospitalized for further evaluation of their emergent condition. - New Patient This patient is new to me today: No - Critical Care Critical Care patient: Yes Total Critical Care Time (in minutes): 42 Critical Care Statement: The care of this patient involved high complexity decision making to prevent further life threatening deterioration of the patient 's condition and/or to evalute & treat vital organ system(s) failure or risk of failure.
[2016-10-13] MEDS ORDERED: ATORVASTATIN CA 80 MG TABLET (FP) PO SCH (07:39)
--- NOTE | 2016-10-13 09:17 | PN ---
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 She brought him to ER. Mental status quickly resolved on its own. He was never hypertensive. He now feels well and states that he wants to go home. - Current Medication List Current Medications: Active Medications Aspirin (Ecotrin -) 81 mg PO DAILY [facility] Atorvastatin Calcium (Lipitor -) 80 mg PO HS [facility] Enoxaparin Sodium (Lovenox -) 40 mg SQ DAILY@2100 [facility] Last Admin: 10/12/16 20:59 Dose: 40 mg Pantoprazole Sodium (Protonix -) 40 mg PO DAILY [facility] - Objective Vital Signs: Vital Signs Temperature 97.8 F 10/13/16 06:00 Pulse Rate 84 10/13/16 08:00 Respiratory Rate 18 10/13/16 08:00 Blood Pressure 124/80 10/13/16 08:00 O2 Sat by Pulse Oximetry (%) 99 10/13/16 08:00 Labs: CBC, BMP 10/13/16 05:15 10/13/16 05:15 INR, PTT INR 1.16 (0.82-1.09) 10/12/16 06:30 - ....Imaging MRI: Report Reviewed, Image Reviewed (there is some subtle hyperintensity posterior the the trigone on the right) Problem List - Problems (1) Altered mental status Assessment/Plan: Unclear etiology, whether ischemic, PRES, or migrainous (unlikely). I would suggest MRA brain to look for evidence of vasoconstriction, though at this point his problems have resolved, so I think that we won't find it. From my standpoint, he can be discharged if he continues to feel well. Thanks. He should follow up with us [phone] Stella/Ernesto Code(s): R41.82 - ALTERED MENTAL STATUS, UNSPECIFIED
[2016-10-13] MEDS ORDERED: ASPIRIN COATED 81 MG TABLET.EC PO SCH (10:00)
[2016-10-13] MEDS ORDERED: PANTOPRAZOLE 40 MG TABLET (FP) PO SCH (10:00)
--- NOTE | 2016-10-13 11:22 | CONSULT ---
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: No: Alzheimer's, CVA, Dementia, Migraine, Multiple Sclerosis, Peripheral Neuropathy, Parkinson's, Seizure, Syncope, TIA, Vertigo, Other Cardiovascular: No: AFIB, Aneurysm, Aortic Insufficiency, Aortic Stenosis, CAD, CHF, Deep Vein Thrombosis, HTN, Hyperlipdemia, [place], Mitral Insufficiency, Mitral Stenosis, Murmur, Pulmonary Hypertension, Other Pulmonary: No: Asthma, Bronchitis, Cancer, COPD, O2 Dependent, Pneumonia, Previously Intubated, Pulmonary Embolus, Pulmonary Fibrosis, Sleep Apnea, Other - Smoking History Smoking history: Never smoked Have you smoked in the past 12 months: No - Alcohol/Substance Use Hx Alcohol Use: No History - Admission Reason For Visit: TIA - Diagnostics X-ray: Report Reviewed CT Scan: Report Reviewed - General Mental Status: Alert and Oriented, Awake and Alert, Able to Follow Commands Attention: Intact Ability to Follow Directions: Excellent Head/Neck Control: WFL - Hearing Hearing: Normal Speech Evaluation - Communication Primary Language: IRISH Communication: Yes: Within Normal Limits Oral Expression Ability: Yes: No Impairment - Speech Production Able to Make Needs Known: Yes: WNL Intelligibility: Yes: WNL - Speech Characteristics Voice Loudness: Normal Voice Pitch: Yes: Normal Voice Phonatory-based Quality: Yes: Normal Speech Pattern: Normal Speech Clarity: < 100% Nasal Resonance: Normal Articulation: Yes: Precise Rate of Speech: Intact - Language/Auditory Comprehension Follows: Yes: Complex Commands Observation: Able to respond to yes/no queries: Yes, Yes/No Confusion: No, Comprehends Conversational Speech: Yes - Language/Verbal Expression Able to Respond to Simple Queries: Yes: WNL Able to Communicate Wants and Needs: Yes: WNL Functional Communication Status: Yes: WNL - Memory/Perception skilled nursing Memory: Yes: WNL Short Term Memory: Yes: WNL - Swallow Evaluation/Bedside Assessment Current Nutritional Intake: Regular, Thin Liquids Oral Secretions: Yes: WFL Dentition: Yes: Adequate Facial Symmetry at Rest: Symmetrical Facial Symmetry on Retraction: Symmetrical Facial Movement: Controlled Sensation: Normal Against Resistance Opening: Normal Against Resistance Closing: Normal Pucker Lips: Normal Smile: Normal Lingual Movement: Normal Lingual Speed of Movement: Normal Lingual Movement Strgth Against Opposition: Normal Lingual Movement Characteristics: Normal Velopharyngeal Movement: Normal Laryngeal Elevation: WFL Laryngeal Movement: Able to Palpate Rate of Intake: WFL Bolus Size: WFL Labial Seal: WFL Chewing: WFL Oral Prep Time: WFL A-P Transit: WFL Pocketing: None Timing of Swallow: WFL Coughing/Throat Clear: No Change in Voice: No Recommendations - Speech Evaluation, Impression/Plan Impression: Spontaneous recovery of synptoms. Pt and feel he is back to baseline. - Dysphagia Impressions/Plan Swallowing Skills: WFL Dysphagia Impressions: No Impairment *Silent aspiration: cannot be R/O at bedside - Recommendations Diet Consistency: Regular Medication Administration: Whole with water Liquids: Thin Liquids
--- NOTE | 2016-10-13 12:07 | PN ---
Teaching Attending Note Name of Resident: Jose Perez ATTENDING PHYSICIAN STATEMENT I saw and evaluated the patient. I reviewed the resident's note and discussed the case with the resident. I agree with the resident's findings and plan as documented. SUBJECTIVE: Patient seen and examined in the ICU. Awake and alert. Feels that he is at his baseline. No ROBBINS, dizziness, BOV, weakness, etc. Intake & Output 10/10/16 10/11/16 10/12/16 10/13/16 23:59 23:59 23:59 23:59 Intake Total 1000 Output Total 400 240 400 Balance 600 -240 -400 Weight 184 lb 203 lb 0.732 oz 205 lb 0.478 oz Last Vital Signs Temp Pulse Resp BP Pulse Ox 97.8 F 84 18 124/80 99 10/13/16 06:00 10/13/16 08:00 10/13/16 08:00 10/13/16 08:00 10/13/16 08:00 Active Medications Aspirin (Ecotrin -) 81 mg PO DAILY [facility] Last Admin: 10/13/16 10:54 Dose: 81 mg Atorvastatin Calcium (Lipitor -) 80 mg PO [facility] Enoxaparin Sodium (Lovenox -) 40 mg SQ DAILY@2100 [facility] Last Admin: 10/12/16 20:59 Dose: 40 mg Pantoprazole Sodium (Protonix -) 40 mg PO DAILY [facility] Last Admin: 10/13/16 10:54 Dose: 40 mg Constitutional: Yes: Awake and alert, NAD Eyes: Yes: Conjunctiva Clear, EOM Intact HENT: Yes: Normocephalic Neck: Yes: Trachea Midline Cardiovascular: Yes: Regular Rate and Rhythm, S1, S2 Respiratory: Yes: CTA Bilaterally Gastrointestinal: Yes: Normal Bowel Sounds, Soft Edema: No Neurological: Yes: Alert, Oriented, non-focal Psychiatric: Yes: Oriented Labs: Laboratory Results - last 24 hr 10/12/16 10/12/16 10/12/16 06:30 13:00 13:00 WBC RBC Hgb Hct MCV MCHC RDW Plt Count MPV Neutrophils % Lymphocytes % Monocytes % Eosinophils % Basophils % ESR 5 Anticoagulation Therapy Puncture Site Patient Temperature ABG pH ABG pCO2 at Pt Temp ABG pO2 at Pt Temp ABG HCO3 ABG O2 Sat (Measured) ABG O2 Content ABG Base Excess Stan Test Carboxyhemoglobin O2 Delivery Device Oxygen Flow Rate Vent Mode Vent Rate Mechanical Rate PEEP Pressure Support Vent Sodium Potassium Chloride Carbon Dioxide Anion Gap BUN Creatinine Creat Clearance w eGFR Random Glucose Serum Osmolality Lactic Acid Calcium Total Bilirubin AST ALT Alkaline Phosphatase Creatine Kinase Cancelled Troponin I C-Reactive Protein < 0.3 Total Protein Albumin Vitamin B12 Urine Osmolality Salicylates Acetaminophen 10/12/16 10/12/16 10/12/16 13:00 13:00 13:00 WBC RBC Hgb Hct MCV MCHC RDW Plt Count MPV Neutrophils % Lymphocytes % Monocytes % Eosinophils % Basophils % ESR Anticoagulation Therapy Puncture Site Patient Temperature ABG pH ABG pCO2 at Pt Temp ABG pO2 at Pt Temp ABG HCO3 ABG O2 Sat (Measured) ABG O2 Content ABG Base Excess Stan Test Carboxyhemoglobin O2 Delivery Device Oxygen Flow Rate Vent Mode Vent Rate Mechanical Rate PEEP Pressure Support Vent Sodium Potassium Chloride Carbon Dioxide Anion Gap BUN Creatinine Creat Clearance w eGFR Random Glucose Serum Osmolality Lactic Acid Calcium Total Bilirubin AST ALT Alkaline Phosphatase Creatine Kinase Troponin I C-Reactive Protein Total Protein Albumin Vitamin B12 235 Urine Osmolality Salicylates < 4.0 Acetaminophen < 2.000 L 10/12/16 10/12/16 10/12/16 13:00 13:00 13:15 WBC RBC Hgb Hct MCV MCHC RDW Plt Count MPV Neutrophils % Lymphocytes % Monocytes % Eosinophils % Basophils % ESR Anticoagulation Therapy Puncture Site Patient Temperature ABG pH ABG pCO2 at Pt Temp ABG pO2 at Pt Temp ABG HCO3 ABG O2 Sat (Measured) ABG O2 Content ABG Base Excess Stan Test Carboxyhemoglobin O2 Delivery Device Oxygen Flow Rate Vent Mode Vent Rate Mechanical Rate PEEP Pressure Support Vent Sodium Potassium Chloride Carbon Dioxide Anion Gap BUN Creatinine Creat Clearance w eGFR Random Glucose Serum Osmolality 290 Lactic Acid 1.128 Calcium Total Bilirubin AST ALT Alkaline Phosphatase Creatine Kinase Troponin I 0.00 C-Reactive Protein Total Protein Albumin Vitamin B12 Urine Osmolality 795 Salicylates Acetaminophen 10/12/16 10/12/16 10/12/16 13:15 14:20 14:20 WBC RBC Hgb Hct MCV MCHC RDW Plt Count MPV Neutrophils % Lymphocytes % Monocytes % Eosinophils % Basophils % ESR Anticoagulation Therapy Cancelled Puncture Site Cancelled Right radial Patient Temperature Cancelled ABG pH Cancelled 7.44 ABG pCO2 at Pt Temp Cancelled 38.3 ABG pO2 at Pt Temp Cancelled 541.0 H* ABG HCO3 Cancelled 25.5 ABG O2 Sat (Measured) Cancelled 100.0 H* ABG O2 Content Cancelled 22.0 ABG Base Excess Cancelled 1.8 Stan Test Cancelled Positive Carboxyhemoglobin O2 Delivery Device Cancelled Nonrebreather Oxygen Flow Rate Cancelled 100% Vent Mode Cancelled Vent Rate Cancelled Mechanical Rate Cancelled PEEP Cancelled 0.0 Pressure Support Vent Cancelled Sodium Potassium Chloride Carbon Dioxide Anion Gap BUN Creatinine Creat Clearance w eGFR Random Glucose Serum Osmolality Lactic Acid Calcium Total Bilirubin AST ALT Alkaline Phosphatase Creatine Kinase 101 Troponin I C-Reactive Protein Total Protein Albumin Vitamin B12 Urine Osmolality Salicylates Acetaminophen 10/12/16 10/12/16 10/13/16 14:20 18:30 05:15 WBC RBC Hgb Hct MCV MCHC RDW Plt Count MPV Neutrophils % Lymphocytes % Monocytes % Eosinophils % Basophils % ESR 5 Anticoagulation Therapy Puncture Site Patient Temperature ABG pH ABG pCO2 at Pt Temp ABG pO2 at Pt Temp ABG HCO3 ABG O2 Sat (Measured) ABG O2 Content ABG Base Excess Stan Test Carboxyhemoglobin 1.0 O2 Delivery Device Oxygen Flow Rate Vent Mode Vent Rate Mechanical Rate PEEP Pressure Support Vent Sodium Potassium Chloride Carbon Dioxide Anion Gap BUN Creatinine Creat Clearance w eGFR Random Glucose Serum Osmolality Lactic Acid Calcium Total Bilirubin AST ALT Alkaline Phosphatase Creatine Kinase Troponin I C-Reactive Protein < 0.3 Total Protein Albumin Vitamin B12 Urine Osmolality Salicylates Acetaminophen 10/13/16 10/13/16 05:15 05:15 WBC 5.6 RBC 5.04 Hgb 15.0 Hct 43.7 MCV 86.7 MCHC 34.3 RDW 13.1 Plt Count 139 MPV 8.7 Neutrophils % 55.5 Lymphocytes % 33.6 Monocytes % 8.2 Eosinophils % 2.3 Basophils % 0.4 ESR Anticoagulation Therapy Puncture Site Patient Temperature ABG pH ABG pCO2 at Pt Temp ABG pO2 at Pt Temp ABG HCO3 ABG O2 Sat (Measured) ABG O2 Content ABG Base Excess Stan Test Carboxyhemoglobin O2 Delivery Device Oxygen Flow Rate Vent Mode Vent Rate Mechanical Rate PEEP Pressure Support Vent Sodium 143 Potassium 4.5 Chloride 108 H Carbon Dioxide 28 Anion Gap 7 L BUN 15 Creatinine 1.1 Creat Clearance w eGFR > 60 Random Glucose 101 Serum Osmolality Lactic Acid Calcium 8.3 L Total Bilirubin 0.6 AST 13 L ALT 21 Alkaline Phosphatase 63 Creatine Kinase Troponin I C-Reactive Protein Total Protein 6.4 Albumin 3.7 Vitamin B12 Urine Osmolality Salicylates Acetaminophen Problem List - Problems (1) TIA (transient ischemic attack) Code(s): G45.9 - TRANSIENT CEREBRAL ISCHEMIC ATTACK, UNSPECIFIED Qualifiers: Transient cerebral ischemia type: unspecified Qualified Code(s): G45.9 - Transient cerebral ischemic attack, unspecified Assessment/Plan Clinically stable and back to baseline Neuro suggested repeat MRI in 1 week to follow on minimal non-specific changes D/C planning Dr Donahue
--- NOTE | 2016-10-13 13:25 | DS ---
Physical Exam: SUBJECTIVE: Patient seen and examined oob to chair. Ambulating around the room. OBJECTIVE: Vital Signs Period Temp Pulse Resp BP Sys/Ramos Pulse Ox Last 24 Hr 97.8 F-98.6 F 64-84 12-20 95-132/65-81 98-100 PHYSICAL EXAM GENERAL: The patient is awake, alert, and fully oriented, in no acute distress. HEAD: Normal with no signs of trauma. EYES: PERRL, extraocular movements intact, sclera anicteric, conjunctiva clear. ENT: Ears normal, nares patent, oropharynx clear without exudates, moist mucous membranes. NECK: Trachea midline, full range of motion, supple. LUNGS: Breath sounds equal, clear to auscultation bilaterally, no wheezes, no crackles, no accessory muscle use. HEART: Regular rate and rhythm, S1, S2 without murmur, rub or gallop. ABDOMEN: Soft, nontender, nondistended, normoactive bowel sounds, no guarding, no rebound, no hepatosplenomegaly, no masses. EXTREMITIES: 2+ pulses, warm, well-perfused, no edema. NEUROLOGICAL: Cranial nerves II through XII grossly intact. Normal speech, gait not observed. PSYCH: Normal mood, normal affect. SKIN: Warm, dry, normal turgor, no rashes or lesions noted. LABS Laboratory Results - last 24 hr 10/12/16 10/12/16 10/12/16 06:30 13:00 13:00 WBC RBC Hgb Hct MCV MCHC RDW Plt Count MPV Neutrophils % Lymphocytes % Monocytes % Eosinophils % Basophils % ESR 5 Anticoagulation Therapy Puncture Site Patient Temperature ABG pH ABG pCO2 at Pt Temp ABG pO2 at Pt Temp ABG HCO3 ABG O2 Sat (Measured) ABG O2 Content ABG Base Excess Stan Test Carboxyhemoglobin O2 Delivery Device Oxygen Flow Rate Vent Mode Vent Rate Mechanical Rate PEEP Pressure Support Vent Sodium Potassium Chloride Carbon Dioxide Anion Gap BUN Creatinine Creat Clearance w eGFR Random Glucose Serum Osmolality Lactic Acid Calcium Total Bilirubin AST ALT Alkaline Phosphatase Creatine Kinase Cancelled Troponin I C-Reactive Protein < 0.3 Total Protein Albumin Vitamin B12 Urine Osmolality Salicylates Acetaminophen 10/12/16 10/12/16 10/12/16 13:00 13:00 13:00 WBC RBC Hgb Hct MCV MCHC RDW Plt Count MPV Neutrophils % Lymphocytes % Monocytes % Eosinophils % Basophils % ESR Anticoagulation Therapy Puncture Site Patient Temperature ABG pH ABG pCO2 at Pt Temp ABG pO2 at Pt Temp ABG HCO3 ABG O2 Sat (Measured) ABG O2 Content ABG Base Excess Stan Test Carboxyhemoglobin O2 Delivery Device Oxygen Flow Rate Vent Mode Vent Rate Mechanical Rate PEEP Pressure Support Vent Sodium Potassium Chloride Carbon Dioxide Anion Gap BUN Creatinine Creat Clearance w eGFR Random Glucose Serum Osmolality Lactic Acid Calcium Total Bilirubin AST ALT Alkaline Phosphatase Creatine Kinase Troponin I C-Reactive Protein Total Protein Albumin Vitamin B12 235 Urine Osmolality Salicylates < 4.0 Acetaminophen < 2.000 L 10/12/16 10/12/16 10/12/16 13:00 13:00 13:15 WBC RBC Hgb Hct MCV MCHC RDW Plt Count MPV Neutrophils % Lymphocytes % Monocytes % Eosinophils % Basophils % ESR Anticoagulation Therapy Puncture Site Patient Temperature ABG pH ABG pCO2 at Pt Temp ABG pO2 at Pt Temp ABG HCO3 ABG O2 Sat (Measured) ABG O2 Content ABG Base Excess Stan Test Carboxyhemoglobin O2 Delivery Device Oxygen Flow Rate Vent Mode Vent Rate Mechanical Rate PEEP Pressure Support Vent Sodium Potassium Chloride Carbon Dioxide Anion Gap BUN Creatinine Creat Clearance w eGFR Random Glucose Serum Osmolality 290 Lactic Acid 1.128 Calcium Total Bilirubin AST ALT Alkaline Phosphatase Creatine Kinase Troponin I 0.00 C-Reactive Protein Total Protein Albumin Vitamin B12 Urine Osmolality 795 Salicylates Acetaminophen 10/12/16 10/12/16 10/12/16 13:15 14:20 14:20 WBC RBC Hgb Hct MCV MCHC RDW Plt Count MPV Neutrophils % Lymphocytes % Monocytes % Eosinophils % Basophils % ESR Anticoagulation Therapy Cancelled Puncture Site Cancelled Right radial Patient Temperature Cancelled ABG pH Cancelled 7.44 ABG pCO2 at Pt Temp Cancelled 38.3 ABG pO2 at Pt Temp Cancelled 541.0 H* ABG HCO3 Cancelled 25.5 ABG O2 Sat (Measured) Cancelled 100.0 H* ABG O2 Content Cancelled 22.0 ABG Base Excess Cancelled 1.8 Stan Test Cancelled Positive Carboxyhemoglobin O2 Delivery Device Cancelled Nonrebreather Oxygen Flow Rate Cancelled 100% Vent Mode Cancelled Vent Rate Cancelled Mechanical Rate Cancelled PEEP Cancelled 0.0 Pressure Support Vent Cancelled Sodium Potassium Chloride Carbon Dioxide Anion Gap BUN Creatinine Creat Clearance w eGFR Random Glucose Serum Osmolality Lactic Acid Calcium Total Bilirubin AST ALT Alkaline Phosphatase Creatine Kinase 101 Troponin I C-Reactive Protein Total Protein Albumin Vitamin B12 Urine Osmolality Salicylates Acetaminophen 10/12/16 10/12/16 10/13/16 14:20 18:30 05:15 WBC RBC Hgb Hct MCV MCHC RDW Plt Count MPV Neutrophils % Lymphocytes % Monocytes % Eosinophils % Basophils % ESR 5 Anticoagulation Therapy Puncture Site Patient Temperature ABG pH ABG pCO2 at Pt Temp ABG pO2 at Pt Temp ABG HCO3 ABG O2 Sat (Measured) ABG O2 Content ABG Base Excess Stan Test Carboxyhemoglobin 1.0 O2 Delivery Device Oxygen Flow Rate Vent Mode Vent Rate Mechanical Rate PEEP Pressure Support Vent Sodium Potassium Chloride Carbon Dioxide Anion Gap BUN Creatinine Creat Clearance w eGFR Random Glucose Serum Osmolality Lactic Acid Calcium Total Bilirubin AST ALT Alkaline Phosphatase Creatine Kinase Troponin I C-Reactive Protein < 0.3 Total Protein Albumin Vitamin B12 Urine Osmolality Salicylates Acetaminophen 10/13/16 10/13/16 05:15 05:15 WBC 5.6 RBC 5.04 Hgb 15.0 Hct 43.7 MCV 86.7 MCHC 34.3 RDW 13.1 Plt Count 139 MPV 8.7 Neutrophils % 55.5 Lymphocytes % 33.6 Monocytes % 8.2 Eosinophils % 2.3 Basophils % 0.4 ESR Anticoagulation Therapy Puncture Site Patient Temperature ABG pH ABG pCO2 at Pt Temp ABG pO2 at Pt Temp ABG HCO3 ABG O2 Sat (Measured) ABG O2 Content ABG Base Excess Stan Test Carboxyhemoglobin O2 Delivery Device Oxygen Flow Rate Vent Mode Vent Rate Mechanical Rate PEEP Pressure Support Vent Sodium 143 Potassium 4.5 Chloride 108 H Carbon Dioxide 28 Anion Gap 7 L BUN 15 Creatinine 1.1 Creat Clearance w eGFR > 60 Random Glucose 101 Serum Osmolality Lactic Acid Calcium 8.3 L Total Bilirubin 0.6 AST 13 L ALT 21 Alkaline Phosphatase 63 Creatine Kinase Troponin I C-Reactive Protein Total Protein 6.4 Albumin 3.7 Vitamin B12 Urine Osmolality Salicylates Acetaminophen HOSPITAL COURSE: Date of Admission:10/12/16 Date of Discharge: 10/13/16 Pre hospital course 46 year-old male with no significant PMH was brought to ED by his for stroke-like symptoms. 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 He went to work as usual yesterday and when he returned home he went to take a shower. When he came out of the shower his noted the left side of his face was drooping. He appeared to be altered mentally. His speech was slow and he was confused. He complained of feeling very tired. He laid his head on her chest and said "I'm sick." The brought the patient to the ED. Over the past month the patient has been suffering from headaches upon waking. He describes the headaches as frontal and bilateral and he has been taking Tylenol for relief. The reports that she too has been waking up with headaches every morning as well as the couple's two daughters. The house they live in is under renovation by the dentist/owner and yesterday someone came in and installed a carbon monoxide detector because the furnace is old, installed in 1959. Hospital course Patient was lethargic and had no memory of events following the shower. His speech was delayed but no aphasia. He could not subtract 7 from 100. There was no focal weakness or paresthesias. There was no facial droop observed. His NIH Stroke Scale Score was zero. MRI of the brain showed nonspecific minimal to mild increased periventricult signal intensity adjacent to the trigone and occipital horn of the right lateral ventricle, possibly suggestive of toxic metabolic encephalopathy v. encephalitis. Equivocal minimal subtle signal alteration was noted within the right medial temporal lobe. As the time course progressed, patient's speech became more fluid, his memory returned, and his mental status was at baseline at the time of discharge. Dr. Navarro Orozco, neurologist, concluded patient had transient global encephalopathy of unclear origin. Patient was tested for carbon monoxide exposure and his carboxyhemoglobin was WNL. Lyme antibodies were negative. Utox was negative. Patient will follow up with Dr. Orozco for repeat imaging. Minutes to complete discharge: 35 Discharge Summary Reason For Visit: TIA Current Active Problems Altered mental status (Acute) TIA (transient ischemic attack) (Acute) Condition: Improved - Instructions Diet, Activity, Other Instructions: A prescription has been sent to your pharmacy for Lipitor, take as directed. You should also take aspirin 81mg daily. It is important to follow up with Dr. Orozco, the neurologist who saw you in the hospital. You should see him within 7 to 10 days. His contact information is enclosed. Return to the hospital for any new or worsening symptoms. Referrals: Angella Rodriguez MD [Primary Care Provider] - Navarro Orozco DO [Staff Physician] - 1 Week (Call for appt. Follow up in 1 week Call for MRI order ) Disposition: HOME - Home Medications Comprehensive Discharge Medication List: Ambulatory Orders Aspirin Coated [Ecotrin -] 81 mg PO DAILY #30 mg 10/13/16 Atorvastatin Ca [Lipitor] 80 mg PO HS #30 tablet 10/13/16 This patient is new to me today: Yes Date on this admission: 10/16/16 Emergency Visit: Yes ED Registration Date: 10/12/16 Care time: The patient presented to the Emergency Department on the above date and was hospitalized for further evaluation of their emergent condition. Critical Care patient: No - Discharge Referral Referred to [facility] No
[2016-10-13 14:22] VITALS: BP 118/82; PULSE 80; TEMP 98
--- NOTE | 2016-10-14 09:57 | EKG ---
Test Reason : Blood Pressure : / mmHG Vent. Rate : 072 BPM Atrial Rate : 072 BPM P-R Int : 144 ms QRS Dur : 086 ms QT Int : 380 ms P-R-T Axes : 052 054 051 degrees QTc Int : 416 ms NORMAL SINUS RHYTHM ST ELEVATION, CONSIDER EARLY REPOLARIZATION WHEN COMPARED WITH ECG OF 12-OCT-2016 03:13, NO SIGNIFICANT CHANGE WAS FOUND Confirmed by MD LALITO, GARRY ([id number]) on 10/14/2016 9:57:12 AM Referred By: CHAS HERNÁNDEZ Confirmed By:GARRY STARKEY MD
--- NOTE | 2016-10-14 09:57 | EKG ---
Test Reason : Blood Pressure : / mmHG Vent. Rate : 076 BPM Atrial Rate : 076 BPM P-R Int : 144 ms QRS Dur : 090 ms QT Int : 372 ms P-R-T Axes : 084 047 043 degrees QTc Int : 418 ms NORMAL SINUS RHYTHM NO PREVIOUS ECGS AVAILABLE Confirmed by MD LALITO, GARRY ([id number]) on 10/14/2016 9:57:34 AM Referred By: Autumn MARTIN Confirmed By:GARRY STARKEY MD
--- NOTE | 2016-10-14 09:57 | EKG ---
Test Reason : Blood Pressure : / mmHG Vent. Rate : 070 BPM Atrial Rate : 070 BPM P-R Int : 142 ms QRS Dur : 092 ms QT Int : 388 ms P-R-T Axes : 066 051 039 degrees QTc Int : 419 ms POOR DATA QUALITY, INTERPRETATION MAY BE ADVERSELY AFFECTED NORMAL SINUS RHYTHM WHEN COMPARED WITH ECG OF 11-OCT-2016 20:03, NO SIGNIFICANT CHANGE WAS FOUND Confirmed by MD LALITO, GARRY ([id number]) on 10/14/2016 9:57:26 AM Referred By: BETTY Confirmed By:GARRY STARKEY MD
== END 2016-10-13 14:24 | disposition home or self-care (01) ==
LOC: FER 19:15 → FM/S 10-12 00:11 → INTOOBSV 10-12 00:11 → UNDOADMOB 10-12 00:11 → FM/S 10-12 09:51 → JICU 10-12 13:46 → FM/S 10-12 13:46
PROVIDERS: ADMIT Internal Medicine; ATTEND Nurse Practitioner Acute Care
PROC: 3E013GC Introduction of Other Therapeutic Substance into Subcutaneous Tissue, Percutaneous Approach (ICD-10-PCS; principal; 2016-10-12)
PROC: 3E0337Z Introduction of Electrolytic and Water Balance Substance into Peripheral Vein, Percutaneous Approach (ICD-10-PCS; 2016-10-12)
DX: G45.9 Transient cerebral ischemic attack, unspecified (principal); R41.82 Altered mental status, unspecified; Z79.82 Long term (current) use of aspirin
CPT/HCPCS: 36415; 36600; 70450-TC; 70551-TC; 74177-TC; 80053; 80061; 80307; 81003; 82375; 82550; 82607; 82803; 83036; 83605; 83930; 83935; 84443; 84484; 85025; 85610; 85651; 85730; 86038; 86140; 86618; 87040; 93005; 99285-25; G0378

== ENCOUNTER 2017-04-07 19:24 | Observation (INO) | payer OTHER ==
--- NOTE | 2017-04-07 19:38 | PDOC ---
History of Present Illness - General Chief Complaint: Pain Stated Complaint: BACK OF NECK, UPPER BACK, LEFT ARM, LEFT CHEST Time Seen by Provider: 04/07/17 19:26 History Source: Patient Exam Limitations: No Limitations Past History - Past Medical History Allergies/Adverse Reactions: Allergies Allergy/AdvReac Type Severity Reaction Status Date / Time No Known Allergies Allergy Verified 04/07/17 19:25 Home Medications: Ambulatory Orders NK [No Known Home Medication] 04/07/17 CVA: Yes - Suicide/Smoking/Psychosocial Hx Smoking History: Never smoked Have you smoked in the past 12 months: No Information on smoking cessation initiated: No Hx Alcohol Use: No Drug/Substance Use Hx: No Substance Use Type: None *Physical Exam - Vital Signs Last Vital Signs Temp Pulse Resp BP Pulse Ox 98.8 F 69 18 130/85 100 04/07/17 19:25 04/07/17 19:25 04/07/17 19:25 04/07/17 19:25 04/07/17 19:25 *DC/Admit/Observation/Transfer - Discharge Dispostion Condition at time of disposition: Stable
--- NOTE | 2017-04-07 19:54 | PDOC ---
History of Present Illness - General History Source: Patient Exam Limitations: No Limitations <ReggieMacie - Last Filed: 04/07/17 20:55> - General History Source: Patient Exam Limitations: No Limitations <Amanda Barton I - Last Filed: 04/07/17 22:23> - General Chief Complaint: Pain Stated Complaint: BACK OF NECK, UPPER BACK, LEFT ARM, LEFT CHEST Time Seen by Provider: 04/07/17 19:26 - History of Present Illness Initial Comments: 04/07/17 20:56 The patient is a 47 year old male, with a significant past medical history of a TIA(given lipitor and aspirin which resolved his symptoms), who presents to the emergency department with neck pain and chest discomfort for approximately 3 days. The patient reports his chest discomfort is left-sided and describes it as a pulling and aching sensation. He reports his chest pain radiates down his left arm, but denies any associated numbness or tingling. He reports associated neck pain, which is worse with movement. He denies any shortness of breath, diaphoresis, palpitations, or lower extremity edema. He denies any abdominal pain, nausea, vomiting, diarrhea, or constipation. He reports increased sensitivity to light and fatigue, but denies any fever, chills, headache, or dizziness. He denies any recent travel or sick contacts. PAST MEDICAL HISTORY: CVA/TIA PAST SURGICAL HISTORY: no significant history FAMILY HISTORY: no pertinent history SOCIAL HISTORY: Pt lives with family and is employed. 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 MEDICATIONS: reviewed ALLERGIES: As per nursing notes General: Yes fatigue. No fevers or chills, no weight loss HEENT: Yes change in vision(increased sensitivity to light). No sore throat. No ear pain CardioVascular: Yes chest discomfort. No shortness of breath Respiratory: No cough, or wheezing. Gastrointestinal: No nausea, vomiting, diarrhea or constipation, No rectal bleeding Genitourinary: No dysuria, hematuria, or frequency Musculoskeletal: Yes neck pain, left arm pain, chest pulling/aching. No other joint or muscle pain or swelling Neurologic: No headache, vertigo, dizziness or loss of consciousness Psychiatric: No depression Skin: No rashes or easy bruising Endocrine: No increased thirst or abnormal weight change Allergic: No skin or latex allergy All other systems reviewed and normal General: Well-nourished well-developed individual, no acute distress HEENT: Throat: Normal, tonsils normal, no erythema or exudate Neck: Supple, no meningeal signs, no lymphadenopathy Eyes::Pupils equal reactive and round, extraocular motion intact Chest: Nontender to palpation Cardiac: S1-S2 normal, regular rate and rhythm, no murmurs rubs or gallops Respiratory: Lungs clear to auscultation bilateral Abdomen: Soft, nondistended, normal bowel sounds, nontender to palpation diffusely Extremities: Warm, dry, no cyanosis, clubbing, or edema Skin: No rashes Neuro: Alert and oriented x3, nonfocal exam, grossly intact, normal gait Psych: Normal mood and affect (Macie Paredes) 04/07/17 21:33 A portion of this note was documented by scribe services under my direction. I have reviewed the details of the note, within reason, and agree with the documentation. The case summary and management plan written by me. Assessment and plan: This is a 47-year-old male who comes in complaining of upper chest neck and back pain radiating to his left arm. Patient has a cardiogram that has diffuse 1 -[address] elevations throughout all the leads. Patient had a workup including chest x-ray which is normal for any acute pathology specifically the mediastinum is not wide The troponin is negative Patient has a history significant for a TIA in the past as well as a strong family history of coronary artery disease. Patient will be admitted to an observation bed for additional cardiac enzymes and evaluation by customer management specialist in the morning as well as a ultrasound to rule out pericarditis. (Amanda Barton I) Past History <Macie Paredes - Last Filed: 04/07/17 20:55> - Past Medical History CVA: Yes - Suicide/Smoking/Psychosocial Hx Smoking History: Never smoked Have you smoked in the past 12 months: No Information on smoking cessation initiated: No Hx Alcohol Use: No Drug/Substance Use Hx: No Substance Use Type: None <Amanda Barton I - Last Filed: 04/07/17 22:23> - Past Medical History Allergies/Adverse Reactions: Allergies Allergy/AdvReac Type Severity Reaction Status Date / Time No Known Allergies Allergy Verified 04/07/17 19:25 Home Medications: Ambulatory Orders NK [No Known Home Medication] 04/07/17 - Vital Signs Last Vital Signs Temp Pulse Resp BP Pulse Ox 98.8 F 69 18 130/85 100 04/07/17 19:25 04/07/17 19:25 04/07/17 19:25 04/07/17 19:25 04/07/17 19:25 ED Treatment Course - LABORATORY CBC & Chemistry Diagram: 04/07/17 20:05 04/07/17 20:05 <Macie Paredes - Last Filed: 04/07/17 20:55> - LABORATORY CBC & Chemistry Diagram: 04/07/17 20:05 04/07/17 20:05 <Amanda Barton I - Last Filed: 04/07/17 22:23> - ADDITIONAL ORDERS Additional order review: Laboratory Results 04/07/17 04/07/17 20:05 20:05 Sodium 139 Potassium 3.7 Chloride 107 Carbon Dioxide 25 Anion Gap 7 L BUN 11 D Creatinine 0.9 Creat Clearance w eGFR > 60 Random Glucose 136 H D Calcium 8.7 Total Bilirubin 0.4 D AST 18 ALT 19 Alkaline Phosphatase 59 D Creatine Kinase 114 Troponin I < 0.03 L Total Protein 6.5 Albumin 4.2 04/07/17 20:05 RBC 4.86 MCV 85.6 MCHC 34.2 RDW 12.3 MPV 9.4 Neutrophils % 54.4 Lymphocytes % 33.3 Monocytes % 7.6 Eosinophils % 2.5 Basophils % 2.2 H - RADIOLOGY Radiology Studies Ordered: Category Date Time Status CHEST X-RAY PORTABLE* [RAD] Stat Radiology 04/07/17 19:54 Taken - Medications Given in the ED: ED Medications Discontinued Medications Generic Name Dose Route Start Last Admin Trade Name Freq PRN Reason Stop Dose Admin Ketorolac Tromethamine 30 mg 04/07/17 20:07 04/07/17 20:22 Toradol Injection - IVPUSH 04/07/17 20:08 30 mg ONCE ONE Administration *DC/Admit/Observation/Transfer <Macie Paredes - Last Filed: 04/07/17 20:55> - Discharge Dispostion Admit: Yes <Amanda Barton I - Last Filed: 04/07/17 22:23> Diagnosis at time of Disposition: Chest pain Qualifiers: Chest pain type: unspecified Qualified Code(s): R07.9 - Chest pain, unspecified - Discharge Dispostion Condition at time of disposition: Stable Decision to Admit order Date/Time: Decision to Admit Order Category Date Time Status Decision to Admit to Hospital Routine Admission 04/07/17 21:36 Active - Attestations Scribe Attestion: 04/07/17 20:56 Documentation prepared by Macie Paredes, acting as clinical medical transcriptionist for Amanda Barton MD. (Macie Paredes)
[2017-04-07] MEDS ORDERED: KETOROLAC TROMETHAMINE 30 MG/1 ML VIAL IVPUSH ONE (20:07)
[2017-04-07] MEDS ORDERED: KETOROLAC TROMETHAMINE 30 MG/1 ML VIAL ONE (20:18)
[2017-04-07 20:36] LABS: ALBUMIN 4.2 g/dl (3.5-5.0); ALK PHOS 59 U/L (32-92); ANION GAP 7 (8-16); BILIRUBIN,TOTAL 0.4 mg/dl (0.2-1.0); CALCIUM 8.7 mg/dl (8.4-10.2); CO2 25 mmol/L (22-28); CPK 114 IU/L (39-308); CREATININE 0.9 mg/dl (0.6-1.3); GLUCOSE,RANDOM 136 mg/dl (74-106); SGOT/AST 18 U/L (10-42); SGPT/ALT 19 U/L (10-40); TOT PROT 6.5 g/dl (6.4-8.3)
[2017-04-07 20:45] LABS: TROPONIN I (DFP) < 0.03 ng/ml (0.03-0.50)
[2017-04-07 21:22] LABS: BASOPHIL 2.2 % (0-2.0); EOSINOPHIL 2.5 % (0-4.5); MCH 29.3 pg (25.7-33.7); MCHC 34.2 g/dl (32.0-35.9); MEAN CELL VOLUME 85.6 fl (80-96); MEAN PLT VOLUME 9.4 fl (7.5-11.1); NEUTROPHILS 54.4 % (42.8-82.8); PLATELET COUNT 174 K/MM3 (134-434); RDW 12.3 % (11.9-15.9); WHITE BLOOD COUNT 5.7 K/mm3 (4.0-10.8)
[2017-04-07] MEDS ORDERED: ASPIRIN 81 MG CHEWABLE TABLETS PO ONE (22:42)
[2017-04-07] MEDS ORDERED: ASPIRIN 325 MG TABLET ONE (22:43)
--- NOTE | 2017-04-07 22:57 | HP ---
CHIEF COMPLAINT: Chest Pain PCP: Doctor not Staff HISTORY OF PRESENT ILLNESS: This is a 47 y/o man with a significant past medical history of TIA (09/2016). Who presents to the ED with left sided chest pain x 3 days. Patient reports the quality as sharp, intermittent and increased on movement. Patient reports having L- scapula/shoulder pain. Patient reports taking Tylenol ES with little relief. Patient reports lifting a heavy planter box at home 2 weeks ago. Patient denies any falls or trauma. Patient denies fever, chills, cough, SOB, AP , N/V/D, constipation, dysuria. 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 [employer] Family History: Father: Diabetes, age 75 Mother: CVA, age 65 Brother: CVA Brother: Cardiac Sisters x6- Healthy Allergies No Known Allergies Allergy (Verified 04/07/17 19:25) HOME MEDICATIONS: Home Medications Medication Instructions Recorded NK [No Known Home Medication] 04/07/17 REVIEW OF SYSTEMS CONSTITUTIONAL: Absent: fever, chills, diaphoresis, generalized weakness, malaise, loss of appetite, weight change HEENT: Absent: rhinorrhea, nasal congestion, throat pain, throat swelling, difficulty swallowing, mouth swelling, ear pain, eye pain, visual changes CARDIOVASCULAR: chest pain Absent: syncope, palpitations, irregular heart rate, lightheadedness, peripheral edema RESPIRATORY: Absent: cough, shortness of breath, dyspnea with exertion, orthopnea, wheezing, stridor, hemoptysis GASTROINTESTINAL: Absent: abdominal pain, abdominal distension, nausea, vomiting, diarrhea, constipation, melena, hematochezia GENITOURINARY: Absent: dysuria, frequency, urgency, hesitancy, hematuria, flank pain, genital pain MUSCULOSKELETAL: back pain, neck pain, left shoulder pain Absent: myalgia, arthralgia, joint swelling SKIN: Absent: rash, itching, pallor HEMATOLOGIC/IMMUNOLOGIC: Absent: easy bleeding, easy bruising, lymphadenopathy, frequent infections ENDOCRINE: Absent: unexplained weight gain, unexplained weight loss, heat intolerance, cold intolerance NEUROLOGIC: Absent: headache, focal weakness or paresthesias, dizziness, unsteady gait, seizure, mental status changes, bladder or bowel incontinence PSYCHIATRIC: Absent: anxiety, depression, suicidal or homicidal ideation, hallucinations. PHYSICAL EXAMINATION GENERAL: Awake, alert, and fully oriented, in no acute distress. HEAD: Normal with no signs of trauma. EYES: Pupils equal, round and reactive to light, extraocular movements intact, sclera anicteric, conjunctiva clear. No lid lag. EARS, NOSE, THROAT: Ears normal, nares patent, oropharynx clear without exudates. Moist mucous membranes. NECK: Normal range of motion, supple without lymphadenopathy, JVD, or masses. LUNGS: Breath sounds equal, clear to auscultation bilaterally. No wheezes, and no crackles. No accessory muscle use. HEART: Regular rate and rhythm, normal S1 and S2 without murmur, rub or gallop. Non-reproducible CP ABDOMEN: Soft, nontender, not distended, normoactive bowel sounds, no guarding, no rebound, no masses. No hepatomegaly or splenomegaly. MUSCULOSKELETAL: Normal range of motion at all joints. No bony deformities or tenderness. No CVA tenderness. UPPER EXTREMITIES: 2+ pulses, warm, well-perfused. No cyanosis. No clubbing. No peripheral edema. LOWER EXTREMITIES: 2+ pulses, warm, well-perfused. No calf tenderness. No peripheral edema. NEUROLOGICAL: Cranial nerves II-XII intact. Normal speech. Gait not observed. PSYCHIATRIC: Cooperative. Good eye contact. Appropriate mood and affect. SKIN: Warm, dry, normal turgor, no rashes or lesions noted, normal capillary refill. Laboratory Results - last 24 hr 04/07/17 04/07/17 04/07/17 20:05 20:05 20:05 WBC 5.7 RBC 4.86 Hgb 14.2 Hct 41.6 MCV 85.6 MCH 29.3 MCHC 34.2 RDW 12.3 Plt Count 174 D MPV 9.4 Neutrophils % 54.4 Lymphocytes % 33.3 Monocytes % 7.6 Eosinophils % 2.5 Basophils % 2.2 H Sodium 139 Potassium 3.7 Chloride 107 Carbon Dioxide 25 Anion Gap 7 L BUN 11 D Creatinine 0.9 Creat Clearance w eGFR > 60 Random Glucose 136 H D Calcium 8.7 Total Bilirubin 0.4 D AST 18 ALT 19 Alkaline Phosphatase 59 D Creatine Kinase 114 Troponin I < 0.03 L Total Protein 6.5 Albumin 4.2 ASSESSMENT/PLAN: This is a 47 y/o man with a PMHx of TIA. Placed on Tele Observation for Chest Pain r/o ACS for further evaluation of their emergent condition. Plan: 1. Cardiac: Chest Pain - r/o ACS - Tele monitoring - Serial Enzymes x2 - EKG reviewed- no change compared to prior study - Appreciate Cardiology Consult - Echo- check LVEF, wall motion - Continue Asa - Will start Lipitor - Lipid panel, TSH, Hgb A1C in am - CBC, BMP in am 2. TIA - B 2. FEN - PO Fluids as tolerated - Replete lytes prn - Low Na, Low Cholesterol Diet 3. DVT Prophylaxis - OOB - SCDs Code Status: Full Code Dispo: Obs
[2017-04-07 23:45] VITALS: BMI 29.3
[2017-04-08] MEDS ORDERED: morphine SULFATE 4 MG/ML VIAL IVPUSH PRN (00:06)
[2017-04-08] MEDS ORDERED: ONDANSETRON 4 MG/2 ML VIAL IVPUSH PRN (00:09)
[2017-04-08] MEDS ORDERED: morphine CARPU-JECT 4 MG/1 ML DISP.SYRIN IVPUSH PRN (00:28)
[2017-04-08 02:42] LABS: CPK 97 IU/L (39-308)
[2017-04-08 02:43] LABS: TROPONIN I < 0.02 ng/ml (0.00-0.05)
[2017-04-08 06:34] VITALS: PULSE 58; TEMP 97.7
--- NOTE | 2017-04-08 07:41 | PN ---
Physical Exam: SUBJECTIVE: Patient seen and examined. No chest pain during the night. Pt states episodes of CP occur at rest, intermittently with no precipitating or alleviating factors. He has one brother with CAD who had stents placed at age 55 and one brother who had a CVA at age 60. OBJECTIVE: Vital Signs - 24 hr 3 04/07/17 04/07/17 04/08/17 19:25 23:15 06:00 Temperature 98.8 F 97.3 F L 97.7 F Pulse Rate 69 63 58 L Respirtory 18 16 18 Rate Blood Pressure 130/85 111/62 137/71 O2 Sat by Pulse 100 100 100 Oximetry (%) GENERAL: The patient is awake, alert, and fully oriented, in no acute distress. HEAD: Normal with no signs of trauma. EYES: PERRL, extraocular movements intact, sclera anicteric, conjunctiva clear. No ptosis. ENT: Ears normal, nares patent, oropharynx clear without exudates, moist mucous membranes. NECK: Trachea midline, full range of motion, supple. LUNGS: Breath sounds equal, clear to auscultation bilaterally, no wheezes, no crackles, no accessory muscle use. HEART: Regular rate and rhythm, S1, S2 without murmur, rub or gallop. ABDOMEN: Soft, nontender, nondistended, normoactive bowel sounds, no guarding, no rebound, no hepatosplenomegaly, no masses. EXTREMITIES: 2+ pulses, warm, well-perfused, no edema. NEUROLOGICAL: Cranial nerves II through XII grossly intact. Normal speech, gait not observed. PSYCH: Normal mood, normal affect. SKIN: Warm, dry, normal turgor, no rashes or lesions noted Laboratory Results - last 24 hr 3 04/07/17 04/07/17 04/07/17 04/08/17 20:05 20:05 20:05 02:00 WBC 5.7 RBC 4.86 Hgb 14.2 Hct 41.6 MCV 85.6 MCH 29.3 MCHC 34.2 RDW 12.3 Plt Count 174 D MPV 9.4 Neutrophils % 54.4 Lymphocytes % 33.3 Monocytes % 7.6 Eosinophils % 2.5 Basophils % 2.2 H Sodium 139 Potassium 3.7 Chloride 107 Carbon Dioxide 25 Anion Gap 7 L BUN 11 D Creatinine 0.9 Creat Clearance w eGFR > 60 Random Glucose 136 H D Calcium 8.7 Total Bilirubin 0.4 D AST 18 ALT 19 Alkaline Phosphatase 59 D Creatine Kinase 114 97 Troponin I < 0.03 L < 0.02 Total Protein 6.5 Albumin 4.2 Active Medications 3 Generic Name Dose Route Start Last Admin Trade Name Freq PRN Reason Stop Dose Admin Aspirin 81 mg 04/08/17 10:00 Asa - PO DAILY ZACH Atorvastatin Calcium 10 mg 04/08/17 22:00 Lipitor - PO HS ZACH Morphine Sulfate 4 mg 04/08/17 00:28 04/08/17 00:34 Morphine Injection - IVPUSH 4 mg Q6H PRN Administration PAIN Ondansetron HCl 4 mg 04/08/17 00:09 Zofran Injection IVPUSH Q6H PRN NAUSEA AND/OR VOMITING ASSESSMENT/PLAN: 47yM with PMH TIA this past September who presented to the ED with chest pain. He has been admitted for further observation and evaluation. Chest pain - troponin neg x 2, trend x 1 more - given extensive family history and [place] will order stress test - NPO for stress test, pt and staff made aware - cardiology consult pending DVT PPX - deferred as expected LOS <48h FEN - tolerating po, defer IVF as will only be NPO for a few hours - BMP this am - Resume regular diet after stress test Dispo: Pt currently requires inpatient observation. If all tests negative may be DC with o/p f/u today or tomorrow. Visit type - Emergency Visit Emergency Visit: Yes ED Registration Date: 04/07/17 Care time: The patient presented to the Emergency Department on the above date and was hospitalized for further evaluation of their emergent condition. - New Patient This patient is new to me today: Yes Date on this admission: 04/08/17 - Critical Care Critical Care patient: No
[2017-04-08 08:49] LABS: BASOPHIL 1.7 % (0-2.0); EOSINOPHIL 3.4 % (0-4.5); MCH 28.7 pg (25.7-33.7); MCHC 33.1 g/dl (32.0-35.9); MEAN CELL VOLUME 86.6 fl (80-96); MEAN PLT VOLUME 8.9 fl (7.5-11.1); NEUTROPHILS 52.1 % (42.8-82.8); PLATELET COUNT 151 K/MM3 (134-434); RDW 12.5 % (11.9-15.9); WHITE BLOOD COUNT 5.2 K/mm3 (4.0-10.8)
[2017-04-08 08:57] LABS: ANION GAP 7 (8-16); CALCIUM 7.7 mg/dl (8.4-10.2); CO2 26 mmol/L (22-28); CREATININE 0.9 mg/dl (0.6-1.3); GLUCOSE,RANDOM 97 mg/dl (74-106); PHOSPHOROUS 3.5 mg/dl (2.5-4.6)
[2017-04-08 08:59] LABS: CPK 92 IU/L (39-308)
[2017-04-08 09:14] LABS: TROPONIN I (DFP) < 0.03 ng/ml (0.03-0.50)
[2017-04-08 09:41] LABS: CHOLESTEROL 183 mg/dl
[2017-04-08] MEDS ORDERED: ASPIRIN 81 MG CHEWABLE TABLETS PO SCH (10:00)
[2017-04-08 10:05] VITALS: BP 120/82
--- NOTE | 2017-04-08 15:38 | CON.CARD ---
Cardiology Consult (text) - Consultation Consultation Note: CC: left arm pain/angina 47 year old male, with a significant past medical history of a TIA(given lipitor and aspirin which resolved his symptoms), who presents to the emergency department with neck pain and chest discomfort for approximately 3 days. The patient reports his chest discomfort is left-sided and describes it as a pulling and aching sensation. He reports his chest pain radiates down his left arm, but denies any associated numbness or tingling. He reports associated neck pain, which is worse with movement. He denies any shortness of breath, diaphoresis, palpitations, or lower extremity edema. He denies any abdominal pain, nausea, vomiting, diarrhea, or constipation. He reports increased sensitivity to light and fatigue, but denies any fever, chills, headache, or dizziness. He denies any recent travel or sick contacts. PAST MEDICAL HISTORY: CVA/TIA PAST SURGICAL HISTORY: no significant history FAMILY HISTORY: no pertinent history SOCIAL HISTORY: Pt lives with family and is employed. 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 Ambulatory Orders NK [No Known Home Medication] 04/07/17 Current Medications Aspirin (Asa -) 81 mg PO DAILY ZACH Atorvastatin Calcium (Lipitor -) 10 mg PO HS ZACH Morphine Sulfate (Morphine Injection -) 4 mg IVPUSH Q6H PRN PRN Reason: PAIN Last Admin: 04/08/17 00:34 Dose: 4 mg Ondansetron HCl (Zofran Injection) 4 mg IVPUSH Q6H PRN PRN Reason: NAUSEA AND/OR VOMITING Vital Signs - 24 hr 04/07/17 04/07/17 04/08/17 19:25 23:15 06:00 Temperature 98.8 F 97.3 F L 97.7 F Pulse Rate 69 63 58 L Respiratory 18 16 18 Rate Blood Pressure 130/85 111/62 137/71 O2 Sat by Pulse 100 100 100 Oximetry (%) 04/08/17 04/08/17 08:51 10:05 Temperature Pulse Rate Respiratory 18 Rate Blood Pressure 120/82 O2 Sat by Pulse 100 Oximetry (%) Intake & Output 04/06/17 04/07/17 04/08/17 04/09/17 07:59 07:59 07:59 07:59 Intake Total 0 Balance 0 Weight 193 lb CBC, BMP 04/08/17 08:00 04/08/17 08:00 Echo nl lv/rv/valves Stress: negative for ischemia. Pain likely msk. Safe for d/c from CV perspective. Can follow up with outpatient cardiology. Full note to follow.
[2017-04-08] MEDS ORDERED: ATORVASTATIN CA 10 MG TABLET (FP) PO SCH (22:00)
--- NOTE | 2017-04-08 22:43 | DS ---
Physical Exam: SUBJECTIVE: Patient seen and examined earlier today. Please see progress note dated today for full assessment. Pt remains without further chest pain OBJECTIVE: Vital Signs 3 Period Temp Pulse Resp BP Sys/Ramos Pulse Ox Last 24 Hr 97.3 F-97.7 F 58-63 16-18 111-137/62-82 100-100 LABS Laboratory Results - last 24 hr 3 04/08/17 04/08/17 04/08/17 02:00 08:00 08:00 WBC 5.2 RBC 5.12 Hgb 14.7 Hct 44.4 MCV 86.6 MCH 28.7 MCHC 33.1 RDW 12.5 Plt Count 151 MPV 8.9 Neutrophils % 52.1 Lymphocytes % 35.1 Monocytes % 7.7 Eosinophils % 3.4 Basophils % 1.7 Sodium 136 Potassium 4.0 Chloride 103 Carbon Dioxide 26 Anion Gap 7 L BUN 10 Creatinine 0.9 Random Glucose 97 D Calcium 7.7 L Phosphorus 3.5 Magnesium 2.0 Creatine Kinase 97 Troponin I < 0.02 Triglycerides Cholesterol Total LDL Cholesterol HDL Cholesterol 3 04/08/17 04/08/17 08:00 08:00 WBC RBC Hgb Hct MCV MCH MCHC RDW Plt Count MPV Neutrophils % Lymphocytes % Monocytes % Eosinophils % Basophils % Sodium Potassium Chloride Carbon Dioxide Anion Gap BUN Creatinine Random Glucose Calcium Phosphorus Magnesium Creatine Kinase 92 Troponin I < 0.03 L Triglycerides 139 Cholesterol 183 Total LDL Cholesterol 121 HDL Cholesterol 34 HOSPITAL COURSE: Date of Admission:04/07/17 Date of Discharge: 04/08/17 This is a 47 year old male with PMH of TIA this past September who presented to the ED with chest pain. Troponins were trended and negative x 3. He underwent nuclear stress testing and echocardiogram. Stress test revealed no ischemia, EF 62%. Echo essentially negative, mild tricuspid regurg, trace to mild mitral regurg with normal LV wall motion, EF, size, thickness and function. He was evaluated by cardiology and cleared for DC with outpatient follow up. He was discharged home with new prescriptions for lipitor and aspirin as well as recommendation for cardiology f/u. Minutes to complete discharge: 35 Discharge Summary Reason For Visit: BACK OF NECK, UPPER BACK, LEFT ARM, LEFT CHEST Current Active Problems Chest pain (Acute) Condition: Stable - Instructions Diet, Activity, Other Instructions: Please return to the ED for any new, persistent, or worsening symptoms. Follow up with your primary care doctor in 1 week Take new medications as directed Follow up with Dr. Galindo (sessions clerk) in 2 weeks for continued management Referrals: Lucila Gonzalez MD [Staff Physician] - Disposition: HOME - Home Medications Comprehensive Discharge Medication List: Ambulatory Orders Aspirin [ASA -] 81 mg PO DAILY #30 tab.chew 04/08/17 Atorvastatin Ca [Lipitor] 10 mg PO HS #30 tablet 04/08/17 This patient is new to me today: Yes Date on this admission: 04/08/17 Emergency Visit: Yes ED Registration Date: 04/07/17 Care time: The patient presented to the Emergency Department on the above date and was hospitalized for further evaluation of their emergent condition. Critical Care patient: No - Discharge Referral Referred to [facility] Med P.C.: No
--- NOTE | 2017-04-09 09:13 | EKG ---
Test Reason : Blood Pressure : / mmHG Vent. Rate : 071 BPM Atrial Rate : 071 BPM P-R Int : 146 ms QRS Dur : 086 ms QT Int : 390 ms P-R-T Axes : 065 051 042 degrees QTc Int : 423 ms NORMAL SINUS RHYTHM ST ELEVATION, CONSIDER EARLY REPOLARIZATION BORDERLINE ECG WHEN COMPARED WITH ECG OF 12-OCT-2016 10:23, NO SIGNIFICANT CHANGE WAS FOUND Confirmed by CHRISTIANO GOMEZ MD ([id number]) on 04/09/2017 9:12:48 AM Referred By: DR HEADLEY Confirmed By:CHRISTIANO GOMEZ MD
== END 2017-04-08 18:39 | disposition home or self-care (01) ==
LOC: FER 19:24 → FM/S 22:42
PROVIDERS: ADMIT Internal Medicine; ATTEND Nurse Practitioner Family
PROC: 3E0333Z Introduction of Anti-inflammatory into Peripheral Vein, Percutaneous Approach (ICD-10-PCS; principal; 2017-04-07)
PROC: 3E033NZ Introduction of Analgesics, Hypnotics, Sedatives into Peripheral Vein, Percutaneous Approach (ICD-10-PCS; 2017-04-07)
DX: R07.9 Chest pain, unspecified (principal); Z86.73 Personal history of transient ischemic attack (TIA), and cerebral infarction without residual deficits; Z79.82 Long term (current) use of aspirin
CPT/HCPCS: 36415; 71010-TC; 78452-TC; 80048; 80053; 80061; 82550; 83735; 84100; 84484; 85025; 93005; 93017; 93306-TC; 96374; 96375; 99285-25; A9502; G0378